=== PATIENT | female | born 1965 | race Caucasian/White ===

== ENCOUNTER 2022-05-08 14:37 | Outpatient (REF) | payer OTHER, SELFPAY ==
[2022-05-08 15:50] LABS: MANUAL DIFF FLAG NO
[2022-05-08 16:04] LABS: Basophils Absolute Auto 0.1 X10*3/uL (0.0-0.2); Basophils Percent Auto 0.6 % (0-2); Eosinophils Absolute Auto 0.2 X10*3/uL (0.0-0.4); Eosinophils Percent Auto 2.3 % (0-4); Hematocrit 40.7 % (37.0-47.0); Hemoglobin 13.8 g/dl (12.0-16.0); Imm Gran Abs Auto 0.03 X10*3/uL (0.00-0.03); Imm Gran Pct Auto 0.3 % (0.0-0.4); Lymphocytes Percent Auto 20.3 % (20-40); Mean Corpuscular HGB Conc 33.9 g/dl (31.0-35.0); Mean Corpuscular Hemoglobin 33.6 pg (27.0-33.0); Mean Platelet Volume 10.3 fL (9.4-12.3); Monocytes Absolute Auto 1.1 X10*3/uL (0.1-1.2); Monocytes Percent Auto 11.5 % (2-11); Neutrophils Absolute Auto 6.4 x10*3/uL (2.0-8.3); Platelet Count 252 X10*3/uL (160-400); Red Blood Count 4.11 X10*6/uL (4.20-5.50); Red Cell Distribution Width 11.8 % (11.0-16.0); White Blood Count 9.8 X10*3/uL (4.8-10.8)
[2022-05-08 16:38] LABS: Alanine Aminotransferase 55 U/L (0-31); Albumin Level 4.3 g/dL (3.5-5.0); Alkaline Phosphatase 79 U/L (39-117); Anion Gap 13 (12-20); Aspartate Amino Transferase 49 U/L (5-31); Bilirubin Total 1.2 mg/dL (0.0-1.0); Blood Urea Nitrogen 27 mg/dL (9-16); Calcium 10.4 mg/dL (8.4-10.2); Carbon Dioxide 28 mmol/L (22-29); Chloride 102 mmol/L (96-108); Estimated Glomerular Filt Rate 42; Glucose Random 118 mg/dL (60-115); Potassium 4.7 mmol/L (3.3-5.1); Sodium 138 mmol/L (135-145); Total Protein 7.2 g/dL (6.5-8.0)
[2022-05-08 17:09] LABS: Ferritin 798 ng/mL (10-250); Thyroid Stimulating Hormone 1.52 uIU/mL (0.32-4.0); Vitamin B12 587 pg/mL (200-900)
== END 2022-05-08 14:38 | disposition home or self-care (01) ==
LOC: HO.LAB 14:37
PROVIDERS: PCP Internal Medicine; Visit Provider Physician Assistant
DX: K21.9 Gastro-esophageal reflux disease without esophagitis (principal); K58.9 Irritable bowel syndrome, unspecified; F10.10 Alcohol abuse, uncomplicated; R79.89 Other specified abnormal findings of blood chemistry; Z87.19 Personal history of other diseases of the digestive system; Z79.899 Other long term (current) drug therapy
CPT/HCPCS: 36415; 80053; 82607; 82728; 82746; 84443; 85025; 87338

== ENCOUNTER 2022-07-18 08:31 | Outpatient (REF) | payer OTHER, SELFPAY ==
--- NOTE | ~2022-07-18 | FL_ITS ---
EXAMINATION: FL BARIUM SWALLOW CLINICAL INFORMATION: Gastroesophageal reflux disease without esophagitis. COMPARISON: 04/21/2017 and 04/18/2017 TECHNIQUE: Barium swallow examination is performed using fluoroscopic evaluation in addition to multiple fluoroscopic spot views. The patient is imaged both upright and prone and using both thick and thin sulfate along with half-inch diameter barium tablet. Fluoroscopy time: 1.8 minutes minutes DAP: 17.097 Gycm2 Images: 16 FINDINGS: There is normal apposition of the focal cords while saying E. There is normal elevation of the soft palate while saying candy. Patient swallowed thin and thick barium and half-inch diameter barium tablet without difficulty. No nasopharyngeal reflux or tracheal aspiration. There is normal esophageal motility without persistent stricture or mucosal abnormality. No hiatal hernia. There was spontaneous gastroesophageal reflux to the level of the thoracic inlet which cleared rapidly. Stomach demonstrates normal distensibility without abnormal mass or ulceration. There was a small amount of retained gastric content. There was no delay in gastric emptying. The duodenal bulb and sweep appear unremarkable FL/FL barium swallow IMPRESSION: Spontaneous gastroesophageal reflux to the level of the thoracic inlet which clears rapidly. Small amount of retained gastric content with patient stating that she did not eat since last night.
== END 2022-07-18 08:32 | disposition home or self-care (01) ==
LOC: HO.XRAY 08:31
PROVIDERS: PCP Internal Medicine; Visit Provider Physician Assistant
DX: K21.9 Gastro-esophageal reflux disease without esophagitis (principal); Z87.19 Personal history of other diseases of the digestive system
CPT/HCPCS: 74220

== ENCOUNTER 2022-09-26 13:18 | Outpatient (REF) | payer OTHER, SELFPAY ==
--- NOTE | ~2022-09-26 | XR_ITS ---
EXAMINATION: XR LUMBOSACRAL SPINE CLINICAL INFORMATION: Radiculopathy and spondylosis. COMPARISON: CT abdomen and pelvis 04/18/2017. TECHNIQUE: Three views of the lumbosacral spine. FINDINGS: Again seen are mild degenerative changes in the lumbar spine most marked at L5-S1 with vacuum phenomena. Vertebral body heights are well maintained. Spondylitic endplate changes are seen with anterior ventral osteophytes arising from the superior endplates from L3 through L5. When comparison is made to the prior study from 04/18/2017, there has been no significant interval change. Again noted is marked aortoiliac vascular calcification. XR/XR lumbar spine 2-3V IMPRESSION: Degenerative changes in the lumbar spine without significant interval change.
== END 2022-09-26 13:19 | disposition home or self-care (01) ==
LOC: HO.XRAY 13:18
PROVIDERS: Visit Provider Physician Assistant
DX: M47.26 Other spondylosis with radiculopathy, lumbar region (principal)
CPT/HCPCS: 72100

== ENCOUNTER 2023-04-30 07:34 | Observation (INO) | payer OTHER, SELFPAY ==
--- NOTE | ~2023-04-30 | CT_ITS ---
EXAMINATION: CT ANGIOGRAM OF THE HEAD CT ANGIOGRAM OF THE NECK CLINICAL INFORMATION: Slurred speech. Altered gait. COMPARISON: CT scan of the head earlier 04/30/2023. CT scan of the head 12/29/2015. TECHNIQUE: Test bolus series followed by intravenous administration 70 mL of Omnipaque 350. Helical imaging was performed in the axial plane from the mediastinum to the skull vertex. The degree of stenosis is based off NASCET criteria. The data was processed at the arrt technologist workstation for generation of MIP images. Three-dimensional volume rendered reformatted images were also generated at an offline 3-D workstation. This CT examination was performed using dose optimization techniques as appropriate, variously including the following: *Automated exposure control *Adjustment of mA and/or kV according to patient size (this includes techniques or standardized protocols for targeted exams where dose is matched to indication/reason for exam; i.e. extremities or head) *Use of iterative reconstruction technique DLP: 1409 mGy-cm. FINDINGS: CT Head: There is no evidence of acute intracranial hemorrhage or territorial infarction. No abnormal mass-effect or midline shift is seen. Taylor to white matter differentiation is well preserved. No extra-axial fluid collections are identified. There is no abnormal enhancement. The ventricles and sulci are slightly commensurately prominent. There are scattered areas of low-attenuation in the periventricular and subcortical white matter, most consistent with chronic microvascular ischemic disease. There are no acute osseous findings. There is hyperostosis frontalis interna. The soft tissues are unremarkable. The mastoid air cells are well-aerated. There is extensive mucoperiosteal thickening with aerosolized secretions in the right maxillary sinus. There is trace mucoperiosteal thickening in the left maxillary and ethmoid sinuses. The frontal sinuses are hypoplastic. There is a 1 cm septal perforation in the anterior nasal septum; this was not demonstrated on the CT scan from 12/29/2015. CTA Neck: There is a classic configuration of the arch of the aorta. The great vessels of the neck are widely patent. The subclavian arteries appear normal bilaterally. There is minimal atheromatous calcification of the distal right common carotid artery. Both common carotid arteries are patent. There are mild atheromatous calcifications at the carotid bifurcations bilaterally without flow-limiting stenosis. The cervical internal carotid arteries are patent bilaterally. There are mild atheromatous calcifications at the origin of the right vertebral artery, but the vessel is patent. The left vertebral artery has a normal origin. Both vertebral arteries are widely patent throughout their cervical course extending intradurally. The vertebral arteries are codominant. Nonvascular: The visualized upper lung guan are unremarkable. The thyroid gland appears normal. There is no cervical lymphadenopathy. There is no significant spondylosis, and facet joints appear normal. CTA Head: There is a there are minimal atheromatous calcifications of the right cavernous internal carotid artery. The internal carotid artery termini appear normal. The middle and anterior cerebral arteries bilaterally demonstrate normal caliber with no evidence of focal stenosis, aneurysm or vascular malformation. There is normal arborization of the middle cerebral artery branches. The anterior communicating artery is normal. In the posterior circulation, the vertebral arteries are codominant and have uniform caliber. The basilar artery appears normal. The right posterior communicating artery is well seen. The posterior cerebral arteries have normal caliber. The venous sinuses opacify normally. CT/CT angio head neck IMPRESSION: CT Head and Neck: 1. There are no acute bleeds or territorial infarcts. There are no masses or areas of abnormal enhancement. 2. There is mild diffuse volume loss and there are chronic microvascular ischemic changes. 3. There is a 1 cm perforation of the anterior nasal septum. CTA Head and Neck: 1. There are mild atheromatous calcifications in the head and neck vasculature, without flow-limiting stenosis. 2. Intracranially there are no focal stenoses, aneurysms or vascular malformations. This critical result was discussed with Vandana Chin by telephone on 04/30/2023 at 9:30 AM and it was ascertained that the content and urgency of the report was understood at the time of direct communication.
--- NOTE | ~2023-04-30 | XR_ITS ---
EXAMINATION: XR CHEST CLINICAL INFORMATION: Chest pain COMPARISON: 11/09/2019 TECHNIQUE: Frontal view of the chest was obtained. FINDINGS: No significant abnormality is noted involving the heart, lungs, mediastinum, bony thorax or soft tissues. XR/XR chest 1V IMPRESSION: Unremarkable examination with no interval change.
--- NOTE | ~2023-04-30 | CT_ITS ---
EXAMINATION: CT HEAD WITHOUT CONTRAST (STROKE PROTOCOL) CLINICAL INFORMATION: Stroke protocol. Slurred speech. COMPARISON: 12/29/2015 TECHNIQUE: Contiguous axial imaging was performed from the skull base to vertex without intravenous administration of contrast. This CT examination was performed using dose optimization techniques as appropriate, variously including the following: *Automated exposure control *Adjustment of mA and/or kV according to patient size (this includes techniques or standardized protocols for targeted exams where dose is matched to indication/reason for exam; i.e. extremities or head) *Use of iterative reconstruction technique DLP: 651 mGy-cm FINDINGS: Intracranial structures are unremarkable in appearance. No evolving infarct, mass lesion, mass effect or midline shift. No hemorrhage or extra-axial fluid collections. Intraorbital structures are unremarkable. Bilateral maxillary sinus disease, right greater than left. Remaining sinuses and mastoids are clear. Nasal sinus mucosal and turbinate thickening. Mild rightward nasal septal deviation. Bony structures are intact. Soft tissues are unremarkable. CT/CT head for stroke IMPRESSION: No acute intracranial pathology. This critical result was discussed with Elsy Mcmillan at 759 hours on 04/30/2023. It was ascertained that the content and urgency of the report was understood at the time of direct communication.
--- NOTE | ~2023-04-30 | MR_ITS ---
MR BRAIN WITHOUT CONTRAST CLINICAL INFORMATION: Slurred speech. COMPARISON: CTA head and neck 04/30/2023. TECHNIQUE: MRI of the brain was obtained using routine sequences without contrast. FINDINGS: There is no hydrocephalus, extra-axial surface collection, or herniation. There is global cerebellar volume loss and there is mild chronic microangiopathy. The major flow voids at the skull base are preserved. There is no acute infarct on diffusion-weighted imaging. There is no intracranial hemorrhage on the gradient recalled echo acquisition. The midline structures are normal. The cerebellar tonsils are normally positioned. Diffusion artifact within the jeremy. The craniocervical junction is normal. Osseous marrow signal intensity is homogenous. The visualized soft tissues are unremarkable. There is moderate mucosal thickening and there are aerosolized secretions within the right maxillary sinus. There is mild mucosal thickening within the left maxillary sinus and involving the ethmoid air cells bilaterally. The mastoid air cells are clear. MR/MR head/brain wo con IMPRESSION: - No acute intracranial findings. No acute infarcts. There is global cerebellar volume loss and there is mild chronic microangiopathy. - Sinus mucosal disease as described.
--- NOTE | 2023-04-30 07:00 | CA_ITS ---
Transthoracic Echocardiogram Patient (Last, First, Middle): Orin Harden A Gender: Female Date of : 1965 Age: 57 Procedure Date: 04/30/2023 Procedure Type: Transthoracic Echocardiogram [place] [facility] [place]: 154.94 cm Weight: 73.03 kg BSA: 1.72 m2 Heart Rate: 90 bpm BP: 169 / 100 mmHg Level Vial Inspector And Tester: SB Referring MD: Demarcus Lamb MD Symptoms: tia Study Quality: Adequate ECG Rhythm: Sinus Conclusions: - Normal left ventricular cavity size. There is normal left ventricular wall thickness. The left ventricular systolic function is hyperdynamic. The visually estimated ejection fraction is >70%. - Diastolic function is normal for age. Dynamic LVOT gradient - at rest 46 mm Hg, post valsalva 103 mm Hg. - Normal right ventricular cavity size and systolic function. - There is mild dilatation of the ascending aorta measuring 3.60 cm. - There is no evidence of interatrial shunt by agitated saline. Findings Procedure Information Contrast agent, definity, is being given per protocol without apparent complications. Left Ventricle Normal left ventricular cavity size. There is normal left ventricular wall thickness. The left ventricular systolic function is hyperdynamic. The visually estimated ejection fraction is >70%. There is no evidence of regional wall motion abnormalities. There is no systolic anterior motion of the mitral valve. Diastolic function is normal for age. Dynamic LVOT gradient - at rest 46 mm Hg, post valsalva 103 mm Hg. Right Ventricle Normal right ventricular cavity size and systolic function. Atria The left atrium is normal in size. There is no evidence of interatrial shunt by agitated saline. Aortic Valve Normal aortic valve structure and function. There is no aortic valve stenosis. There is no aortic valve regurgitation. Mitral Valve The mitral valve appears normal. There is no mitral valve regurgitation. There is no mitral valve stenosis. Pulmonic Valve The pulmonic valve is likely normal. Tricuspid Valve Normal tricuspid valve structure. There is no tricuspid valve regurgitation. Tricuspid regurgitation envelope is inadequate for calculation of right ventricular systolic pressure. Normal right atrial pressure. Great Vessels There is mild dilatation of the ascending aorta measuring 3.60 cm. The visualized portions of the pulmonary artery and branches are normal. Venous The inferior vena cava is normal in size and collapses greater than 50% with inspiration. Pericardium/Pleural There is no evidence of pericardial effusion. Prior Study Comparison No prior study available for comparison. Measurements 2D Linear Measurements IVSd: 1.18 0.6-0.9/0.6-1.0 cm LVIDd: 4.21 3.9-5.3/4.2-5.9 cm LVIDd Index: 2.45 2.4-3.2/2.2-3.1 cm/m2 LVIDs: 2.45 2.0-3.6 cm LVPWd: 0.64 0.7-1.1 cm LA Diam: 2.70 2.7-3.8/3.0-4.0 cm LAIDs Index: 1.57 1.5-2.3 cm/m2 LV Mass: 150.31 67-162/88-224 g LV Mass Index: 87.39 43-95/49-115 g/m2 LVOT Diam: 2.00 3.0+(-)1.3 cm 2D Systolic Function EF 4C: 81.70 >55% EF 2C: 74.50 >55% EF BiP: 78.40 >55% Mitral Valve MV Pk E: 0.60 MV PK A: 0.85 MV Decel Time: 186.00 E/A: 0.70 E'Lateral: 9.36 E'Medial: 6.96 E/E' Med: 8.60 E/E' Lat: 6.40 PHT: 55.00 MVA PHT: 4.00 Decel [place]: 3.22 Aortic Valve AoV Pk Harshad: 1.88 AoV Mn Harshad: 1.28 AoV VTI: 0.27 AoV Pk Grad: 14.00 Aov Mn Grad: 8.00 MURALI Cont.VTI: 2.82 LVOT LVOT Pk Harshad: 1.45 LVOT Mn Harshad: 1.01 LVOT VTI: 0.25 LVOT Pk Grad: 8.00 LVOT Mn Grad: 5.00 LVOT Diam: 2.00 LVOT Area: 3.14 Diastolic Function MV Pk E: 0.60 MV Pk A: 0.85 E/A: 0.70 E'Medial: 6.96 E/E' Med: 8.60 E' Laterial: 9.36 E/E' Lat: 6.40 Right Ventricle TAPSE (mm): 18.90 TVS' Harshad: 11.80 Tricuspid Valve RA Press: 3.00 Great Vessels Aorta Sinus of Valsalva: 2.70 2.0-3.5 cm Ao Asc: 3.60 2.1-3.4 cm Pulmonary Valve PV Pk Harshad: 1.42 Peak PV Grad: 8.00 Updated in Other Vendor System with Status of Final Carlo Olguin MD electronically signed on 05/01/2023 12:12:14 PM with status of Final
--- NOTE | 2023-04-30 07:43 | ECG_ITS ---
Test Reason : stroke alert Blood Pressure : / mmHG Vent. Rate : 090 BPM Atrial Rate : 090 BPM P-R Int : 146 ms QRS Dur : 076 ms QT Int : 380 ms P-R-T Axes : 023 -01 041 degrees QTc Int : 464 ms Normal sinus rhythm Nonspecific T wave changes Abnormal ECG When compared with ECG of 23-APR-2017 10:00, Nonspecific T wave changes Referred By: Vandana Chin Electronically Signed By:Carlo Olguin
[2023-04-30 07:44] LABS: Prothrombin Time Whole Bld POC 12.5 sec (11.1-13.5)
[2023-04-30 07:48] LABS: Glucose, Whole Blood 72 mg/dL (60-115)
[2023-04-30 07:54] VITALS: BP 164/113; BP 198/120; PULSE 98; PULSE 99; RESP 18; TEMP 37.1; O2SAT 100; O2SAT 97; BMI 30.4
[2023-04-30 08:03] LABS: MANUAL DIFF FLAG NO
--- NOTE | 2023-04-30 08:03 | ED_ITS ---
HPI - Neuro Symptoms/Deficit General Chief Complaint: Neuro Symptoms/Deficit Stated Complaint: STROKE ALERT,DYSPHASIA,TOTAL WEAKNESS,LKW 500 AM Time Seen by Provider: 04/30/23 07:43 History of Present Illness HPI Narrative: Patient is a 57-year-old female presents today with having slurred speech this morning when she woke up. Patient's last known well time was yesterday 20:00. She spoke with her CT at that time her speech was normal. Patient has stated that she feels wobbly this morning. EMS was contacted. Patient's sugar was checked to be in the 70s. She has a history of diabetes. Her symptoms resolved upon arrival in the emergency department. His speech is clear. There is no fever no chills. No pain on urination. No change in vision. Patient from home. Related Data Home Medications Medication Instructions Recorded Confirmed amlodipine 5 mg tablet 5 mg PO DAILY 04/30/23 04/30/23 clonidine HCl 0.1 mg tablet 0.1 mg PO BID 04/30/23 04/30/23 famotidine 20 mg tablet 20 mg PO BEDTIME PRN Heartburn 04/30/23 04/30/23 glipizide 5 mg tablet, extended 5 mg PO DAILY 04/30/23 04/30/23 release 24 hr losartan 100 mg tablet 100 mg PO DAILY 04/30/23 04/30/23 metoprolol tartrate 25 mg tablet 25 mg PO BID 04/30/23 04/30/23 pantoprazole 20 mg tablet,delayed 20 mg PO DAILY 04/30/23 04/30/23 release ropinirole 0.5 mg tablet 0.5 mg PO BEDTIME 04/30/23 04/30/23 Previous Rx's Medication Instructions Recorded sucralfate 1 gram tablet 1 g PO QIDACHS 21 days #90 tabs 05/30/22 Allergies Allergy/AdvReac Type Severity Reaction Status Date / Time acetaminophen [From TYLENOL] Allergy Intermediate UPSET Verified 04/30/23 08:13 STOMACH acetaminophen Allergy Unknown Unknown Uncoded 05/08/22 14:44 Review of Systems 2 Review of Systems: No fever no chills no cough no congestion or upper respiratory symptoms Yes all other systems are reviewed and are negative PMFSH Past Medical History Attestation statement: The following information was validated with the patient. Surgical History H/O section Family History Family History Mother Pancreatic cancer Social History Social History Alcohol intake: current Smoked in Last 30 Days: No Use of substances other than those prescribed or required for medical reasons: No Advance Directives: No Current occupational status: employed Current occupation: [employer] Physical Exam 2 Vital Signs: Vital Signs: Last Vital Signs Temp 98.7 F 04/30/23 07:54 Pulse 98 04/30/23 07:54 Resp 18 04/30/23 07:54 BP 164/113 H 04/30/23 07:54 Pulse Ox 97 04/30/23 07:54 O2 Del Method Room Air 04/30/23 07:54 BMI result Body Mass Index 30.4 Appearance: Alert. Oriented X3. No acute distress. Eyes: Pupils equal, round and reactive to light. ENT: Pharynx normal. Neck: Normal inspection. Neck supple. No lymph nodes noted. No crepitus CVS: Normal heart rate and rhythm. Pulses normal. Normal S1 and S2 Respiratory: No respiratory distress. Breath sounds normal. No Wheezing. No rales Abdomen: Soft and nontender. No rigidity. No distention. good BS x4 Skin: Skin warm and dry. Normal skin color. Normal skin turgor. Extremities: No lower extremity edema. Neurovascular intact to all extremities. No Lacerations. No Rash Neuro: Oriented X 3. No motor deficit. No sensory deficit. Moving all extermities. No slurred speech Medications Administered Discontinued Medications Generic Name Dose Route Start Last Admin Trade Name Freq PRN Reason Stop Dose Admin Iohexol 70 ml 04/30/23 08:58 04/30/23 08:59 Iohexol 350 Mg/Ml 100 Ml Infus..Btl IV 04/30/23 08:59 70 ml ONCE ONE Administration Medical Decision Making Medical Decision Making MDM Narrative: A stroke alert was called prior to patient's arrival based on symptoms. Patient's sugar 75 there has no evidence for hypoglycemia. Patient's EKG by my interpretation showed a sinus rhythm heart rate is 90 MT QRS QTC within normal limits there is nonspecific diffuse T-wave flattening noted. On arrival patient's NIH stroke scale is 0. Well-appearing neurologically intact. CT scan of the head was grossly negative. CTA of the head and neck was grossly negative for any large vessel occlusions. Patient's sugar was normal electrolytes unremarkable will admit patient for observation TIA. Case discussed with the hospitalist team. Differential Diagnosis Differential Diagnoses: The differential diagnosis associated with the presentation includes CVA, TIA, hypoglycemia, intracranial bleed, intracranial mass Admission/Observation Consideration of admission/observation: Escalation of care including admission/observation considered Consult Healthcare Provider Management of the patient was discussed with: Hospitalist (For admission workup TIA) Lab Data MDM Lab Attestation statement: I reviewed the patient's lab results. 04/30/23 07:59 04/30/23 07:59 Labs: Lab Results 04/30/23 04/30/23 04/30/23 Range/Units 07:37 07:41 07:59 WBC 8.6 (4.8-10.8) X10*3/uL RBC 4.70 (4.20-5.50) X10*6/uL Hgb 15.3 (12.0-16.0) g/dl Hct 43.5 (37.0-47.0) % MCV 92.6 (80.0-98.0) fL MCH 32.6 (27.0-33.0) pg MCHC 35.2 H (31.0-35.0) g/dl RDW 12.5 (11.0-16.0) % Plt Count 239 (160-400) X10*3/uL MPV 9.9 (9.4-12.3) fL Immature Gran % (Auto) 0.5 H (0.0-0.4) % Neut % (Auto) 79.5 H (45-73) % Lymph % (Auto) 11.6 L (20-40) % [place] % (Auto) 7.3 (2-11) % Eos % (Auto) 0.8 (0-4) % Baso % (Auto) 0.3 (0-2) % Lymph # (Auto) 1.0 L (1.2-4.9) X10*3/uL [place] # (Auto) 0.6 (0.1-1.2) X10*3/uL Eos # (Auto) 0.1 (0.0-0.4) X10*3/uL Baso # (Auto) 0.0 (0.0-0.2) X10*3/uL Abs Immat Gran (auto) 0.04 H (0.00-0.03) X10*3/uL Absolute Neuts (auto) 6.9 (2.0-8.3) x10*3/uL Absolute Nucleated RBC 0.000 (0.0-0.012) X10*3/uL Nucleated RBC % (auto) 0.0 (0.0-0.2) /100WBC Whole Blood PT 12.5 (11.1-13.5) sec Whole Blood INR 1.0 (0.9-1.1) Sodium 142 (135-145) mmol/L Potassium 4.5 (3.3-5.1) mmol/L Chloride 108 (96-108) mmol/L Carbon Dioxide 18 L (22-29) mmol/L Anion Gap 21 H (12-20) BUN 18 H (9-16) mg/dL Creatinine 0.82 (0.5-1.4) mg/dL Estim Creat Clear Calc 67.5 Estimated GFR > 60 POC Glucose 72 (60-115) mg/dL Random Glucose 85 (60-115) mg/dL Calcium 10.3 H (8.4-10.2) mg/dL Independent Interpretation I performed an independent interpretation of an: EKG (My interpretation patient's EKG showed a sinus rhythm heart rate is 90 MT QRS QTC within normal limits is nonspecific T-wave flattening noted diffusely.) and CT Scan (CT scan of the head was grossly negative for any acute evidence of bleeding. CTA showed no large vessel occlusions.) Radiology Impression Discussion of test interpretation with radiology: I discussed test interpretation with the radiologist and I have reviewed the radiologist's reading. Independent Historian Clinical information obtained from an independent historian. History obtained from or confirmed by: EMS External Record Review External record reviewed: Office record Previous GI labs reviewed Chronic Conditions Patient?s care impacted by: Diabetes and Hypertension NIH Stroke Scale Internal: Initial- Upon Arrival Level of Consciousness: Alert Level of Consciousness Questions: Answers both questions correctly Level of Consciousness Commands: Performs both tasks correctly Best Gaze: Normal Visual: No visual loss Facial Palsy: Normal Motor Arm (Right): No drift Motor Arm (Left): No drift Motor Leg (Right): No drift Motor Leg (Left): No drift Limb Ataxia: Absent Sensory: Normal Best Language: No aphasia Dysarthia: Normal Extinction and Inattention: No abnormality Score: 0 Discharge Plan Discharge Clinical Impression: Transient cerebral ischemia Patient Disposition: Admitted As Inpatient Prescriptions: No Action sucralfate 1 gram tablet 1 g PO QIDACHS 21 Days Qty: 90 0RF amlodipine 5 mg tablet 5 mg PO DAILY clonidine HCl 0.1 mg tablet 0.1 mg PO BID famotidine 20 mg tablet 20 mg PO BEDTIME PRN (Reason: Heartburn) losartan 100 mg tablet 100 mg PO DAILY glipizide 5 mg tablet extended release 24hr 5 mg PO DAILY metoprolol tartrate 25 mg tablet 25 mg PO BID pantoprazole 20 mg tablet,delayed release (DR/EC) 20 mg PO DAILY ropinirole 0.5 mg tablet 0.5 mg PO BEDTIME
[2023-04-30 08:04] LABS: Basophils Percent Auto 0.3 % (0-2); Eosinophils Absolute Auto 0.1 X10*3/uL (0.0-0.4); Eosinophils Percent Auto 0.8 % (0-4); Hematocrit 43.5 % (37.0-47.0); Hemoglobin 15.3 g/dl (12.0-16.0); Imm Gran Abs Auto 0.04 X10*3/uL (0.00-0.03); Imm Gran Pct Auto 0.5 % (0.0-0.4); Lymphocytes Percent Auto 11.6 % (20-40); Mean Corpuscular HGB Conc 35.2 g/dl (31.0-35.0); Mean Corpuscular Hemoglobin 32.6 pg (27.0-33.0); Mean Corpuscular Volume 92.6 fL (80.0-98.0); Mean Platelet Volume 9.9 fL (9.4-12.3); Monocytes Absolute Auto 0.6 X10*3/uL (0.1-1.2); Monocytes Percent Auto 7.3 % (2-11); Neutrophils Absolute Auto 6.9 x10*3/uL (2.0-8.3); Neutrophils Percent Auto 79.5 % (45-73); Platelet Count 239 X10*3/uL (160-400); Red Cell Distribution Width 12.5 % (11.0-16.0); White Blood Count 8.6 X10*3/uL (4.8-10.8)
[2023-04-30 08:20] LABS: Anion Gap 21 (12-20); Blood Urea Nitrogen 18 mg/dL (9-16); Calcium 10.3 mg/dL (8.4-10.2); Carbon Dioxide 18 mmol/L (22-29); Chloride 108 mmol/L (96-108); Creatinine Clr Calc Pharmacy 67.5; Estimated Glomerular Filt Rate > 60; Glucose Random 85 mg/dL (60-115); Potassium 4.5 mmol/L (3.3-5.1); Sodium 142 mmol/L (135-145)
--- NOTE | 2023-04-30 08:28 | PC.NURSE ---
Met with patient after being notified of Stroke Alert in ED. Pt awake, alert and oriented x 3. Reports that approximately 0450 this am she woke and found that she was having difficulty speaking. My tongue felt in the way . States that she is normally up early to feed her cat. She states when I tried to talk to my cat I couldn't speak . She attempted to get out of bed and reports feeling weak all over. I fell out of bed and couldn't walk, I crawled to the kitchen . Pt states that she made it back to the bed and attempted to call her boss. She reports that she couldn't see the phone and felt that both eyes were affected. She was able to finally make contact with her boss who called the [place] [employer]. D sent an ambulance to patient's house. In ED, pt awake, alert and oriented x 3. Hand grasp slightly weaker on left. Moving all extremities. Reports feeling dizzy. When asked if she feels like the room is spinning or if she is on a boat she states I just feel lightheaded . Denies headache. States my vision seems cloudy, I can see but it's a little blurry . States that she only wears glasses to drive. Pt speaking in full clear sentences. Tongue midline. No palmar drift. Pt reports feeling well yesterday and went to bed at 2000 and states that she had no symptoms at that time. Swallow eval completed in ED. Pt tolerated without incident. Stroke Education provided. Pt does have a hx of kidney disease. Waiting on lab results to determine if she is eligible to have CTA. Per patient, other med hx includes hypertension, DM, restless leg syndrome, and acid reflux. All questions answered and patient is aware and agreeable to ED care plan.
[2023-04-30] MEDS: iohexoL 350 MG/ML 100 ML INFUS..BTL 70 ML IV (08:59)
[2023-04-30 10:08] LABS: Alanine Aminotransferase 37 U/L (0-31); Albumin Level 4.5 g/dL (3.5-5.0); Alkaline Phosphatase 69 U/L (39-117); Aspartate Amino Transferase 39 U/L (5-31); Bilirubin Direct 0.2 mg/dL (0.0-0.5); Bilirubin Total 0.6 mg/dL (0.0-1.0); Cholesterol 215 mg/dL (<200); HDL Cholesterol 99 mg/dL (>40); LDL Cholesterol Calculated 103 mg/dL (<100); Triglycerides 66 mg/dL (<150)
--- NOTE | 2023-04-30 10:08 | PM.IMHP ---
History of Present Illness Date of Service: 04/30/23 Chief Complaint: aphasia 57F PMH htn, dm, etoh dependence, gerd presented with aphasia. patient states she awaoke around 5am day of presentation, tongue felt heavy, unable to speak to her cat. tried to get out of bed but felt weak and fell to floor, denies asymetry. went back to bed. tried calling employer and had difficulty managing phone. eventually got through and had difficulty speaking to employer so employer called EMS. in ED CTH, CTA unremarkable. symptoms have since respolved, reports that it lasted about 1 hour. Review of Systems Review of Systems: Yes all other systems are reviewed and are negative [facility] Medical History (Updated 04/30/23 @ 10:13 by Demarcus Lamb MD) Acid reflux HTN (hypertension) Family History Mother Pancreatic cancer Surgical History H/O section Social History Alcohol intake: current Smoked in Last 30 Days: No Use of substances other than those prescribed or required for medical reasons: No Advance Directives: No Current occupational status: employed Current occupation: [employer] Allergies Allergy/AdvReac Type Severity Reaction Status Date / Time acetaminophen [From TYLENOL] Allergy Intermediate UPSET Verified 04/30/23 08:13 STOMACH acetaminophen Allergy Unknown Unknown Uncoded 05/08/22 14:44 Active Medications: Current Medications Aspirin (Aspirin Enteric Coated 81 Mg Tablet.) 81 mg PO DAILY [facility] Atorvastatin Calcium (Atorvastatin Calcium 80 Mg Tablet) 80 mg PO BEDTIME [facility] Dextrose (Dextrose 50 % 25 Gm/50 Ml Syringe) 25 gm IVPUSH Q15M PRN; Protocol PRN Reason: per Hypoglycemia Standing Ord. Famotidine (Famotidine 20 Mg Tablet) 20 mg PO BEDTIME PRN PRN Reason: Heartburn Glucose (Glucose Gel 15 Gm Gel..Gram.) 15 gm PO Q15M PRN; Protocol PRN Reason: per Hypoglycemia Standing Ord. Insulin Human Lispro (Insulin Lispro 100 Unit/Ml 3 Ml Vial) 0 unit SUBCUT QIDACHS [facility]; Protocol Omeprazole (Omeprazole 20 Mg Capsule.) 20 mg PO DAILY@0630 [facility] Ropinirole HCl (Ropinirole Hcl 0.5 Mg Tablet) 0.5 mg PO BEDTIME [facility] Home Medications Medication Instructions Recorded Confirmed Last Taken Type amlodipine 5 mg tablet 5 mg PO DAILY 04/30/23 04/30/23 Unknown History clonidine HCl 0.1 mg tablet 0.1 mg PO BID 04/30/23 04/30/23 Unknown History famotidine 20 mg tablet 20 mg PO BEDTIME PRN Heartburn 04/30/23 04/30/23 Unknown History glipizide 5 mg tablet, extended 5 mg PO DAILY 04/30/23 04/30/23 Unknown History release 24 hr losartan 100 mg tablet 100 mg PO DAILY 04/30/23 04/30/23 Unknown History metoprolol tartrate 25 mg tablet 25 mg PO BID 04/30/23 04/30/23 Unknown History pantoprazole 20 mg tablet,delayed 20 mg PO DAILY 04/30/23 04/30/23 Unknown History release ropinirole 0.5 mg tablet 0.5 mg PO BEDTIME 04/30/23 04/30/23 Unknown History Physical Exam Vital Signs and Narrative: Vital Signs: Last Vital Signs Temp 98.7 F 04/30/23 07:54 Pulse 98 04/30/23 07:54 Resp 18 04/30/23 07:54 BP 164/113 H 04/30/23 07:54 Pulse Ox 97 04/30/23 07:54 O2 Del Method Room Air 04/30/23 07:54 BMI result Body Mass Index 30.4 General: AO X 3, no acute distress Resp: CTA bilateral, no accessory muscles used CVS: S1,S2,RRR GI: soft, non tender, non distended Neuro: motor grossly intact, alert Psych: appropriate affect, appropriate insight Results Labs 04/30/23 07:59 04/30/23 07:59 Labs: Laboratory Results - last 24 hr 04/30/23 04/30/23 04/30/23 07:37 07:41 07:59 MCV 92.6 MCH 32.6 MCHC 35.2 H RDW 12.5 Plt Count 239 MPV 9.9 Immature Gran % (Auto) 0.5 H Neut % (Auto) 79.5 H Lymph % (Auto) 11.6 L [place] % (Auto) 7.3 Eos % (Auto) 0.8 Baso % (Auto) 0.3 Lymph # (Auto) 1.0 L [place] # (Auto) 0.6 Eos # (Auto) 0.1 Baso # (Auto) 0.0 Abs Immat Gran (auto) 0.04 H Absolute Neuts (auto) 6.9 Absolute Nucleated RBC 0.000 Nucleated RBC % (auto) 0.0 Whole Blood PT 12.5 Whole Blood INR 1.0 Anion Gap 21 H Estim Creat Clear Calc 67.5 Estimated GFR > 60 POC Glucose 72 Random Glucose 85 Calcium 10.3 H Total Bilirubin 0.6 Direct Bilirubin 0.2 AST 39 H ALT 37 H Alkaline Phosphatase 69 Total Protein 8.0 Albumin 4.5 Triglycerides 66 Cholesterol 215 H LDL Cholesterol, Calc 103 H HDL Cholesterol 99 Imaging Radiologist's Impressions: Impressions Head CT 04/30/23 07:50 IMPRESSION: No acute intracranial pathology. This critical result was discussed with Elsy Mcmillan at 759 hours on 04/30/2023. It was ascertained that the content and urgency of the report was understood at the time of direct communication. Chest X-Ray 04/30/23 09:05 IMPRESSION: Unremarkable examination with no interval change. Head/Neck CTA 04/30/23 09:08 IMPRESSION: CT Head and Neck: 1. There are no acute bleeds or territorial infarcts. There are no masses or areas of abnormal enhancement. 2. There is mild diffuse volume loss and there are chronic microvascular ischemic changes. 3. There is a 1 cm perforation of the anterior nasal septum. CTA Head and Neck: 1. There are mild atheromatous calcifications in the head and neck vasculature, without flow-limiting stenosis. 2. Intracranially there are no focal stenoses, aneurysms or vascular malformations. This critical result was discussed with Vandana Chin by telephone on 04/30/2023 at 9:30 AM and it was ascertained that the content and urgency of the report was understood at the time of direct communication. Assessment and Plan (1) HTN (hypertension): Status: Acute Plan 57F PMH htn, dm, etoh dependence, gerd presented with aphasia acute transient aphasia concern for TIA check mri, monitor on tele neuro eval echo pt/ot no evidence of dysphagia asa, statin dm insulin sliding scale htn holding meds for permissive htn gerd ppi history of etoh dependence monitor ciwa dvt prophylaxis - lovenox full code Quality Stroke Does the patient have a stroke diagnosis?: Yes Reason for No Anti-thrombotic by Day Two: N/A - Med Ordered VTE Prior VTE?: No VTE Risk Level:: Medical - moderate - high VTE Device Contraindication: Treatment Not Indicated VTE Drug Contraindication: N/A - Med Ordered
[2023-04-30] MEDS: Aspirin Enteric Coated 81 MG TABLET.DR PO (10:22)
[2023-04-30 10:24] VITALS: BP 169/100; PULSE 92; RESP 15; O2SAT 97
[2023-04-30 11:07] VITALS: BP 197/119; PULSE 92
--- NOTE | 2023-04-30 11:23 | PHA.MEDREC ---
Pharmacy Consult ? Medication Reconciliation Pharmacy has completed the medication reconciliation.Patient confirmed medications. Reports that once she is done with pantoprazole 20mg, She will not take again.
--- NOTE | 2023-04-30 11:31 | PM.NEUROCN ---
History of Present Illness Data of Consult Service Date: 04/30/23 Primary Care Provider: Unknown Physician HPI Reason for consult: Transient speech disturbance This is a 57 yr old woman, with h/o HBP, DM, etoh dependence, GERD who presented with aphasia. She states that she awoke around 5am today unable to speak to her cat and tongue felt funny. She tried to get out of bed but felt weak and fell to floor. She went back to bed, and tried calling her employer and had difficulty with the phone. Because of difficulty speaking to employer , he called EMS. All symptoms resolved in less than [address], and head and neck CTA unremarkable. No previous stroke, TIA, migraine Review of Systems Review of Systems: No fever no chills no cough no congestion or upper respiratory symptoms Yes all other systems are reviewed and are negative PMF Past Medical History Medical History Acid reflux HTN (hypertension) Family History Family History Mother Pancreatic cancer Surgical History Surgical History H/O section Social History Social History Alcohol intake: current Smoked in Last 30 Days: No Use of substances other than those prescribed or required for medical reasons: No Advance Directives: No Current occupational status: employed Current occupation: [employer] Allergies Allergy/AdvReac Type Severity Reaction Status Date / Time acetaminophen [From TYLENOL] Allergy Intermediate UPSET Verified 04/30/23 08:13 STOMACH acetaminophen Allergy Unknown Unknown Uncoded 05/08/22 14:44 Active Medications: Current Medications Aspirin (Aspirin Enteric Coated 81 Mg Tablet.) 81 mg PO DAILY MONICO Last Admin: 04/30/23 10:22 Dose: 81 mg Atorvastatin Calcium (Atorvastatin Calcium 80 Mg Tablet) 80 mg PO BEDTIME [facility]ICO Dextrose (Dextrose 50 % 25 Gm/50 Ml Syringe) 25 gm IVPUSH Q15M PRN; Protocol PRN Reason: per Hypoglycemia Standing Ord. Enoxaparin Sodium (Enoxaparin Sodium 40 Mg/0.4 Ml Syringe) 40 mg SUBCUT Q24H [facility] Famotidine (Famotidine 20 Mg Tablet) 20 mg PO BEDTIME PRN PRN Reason: Heartburn Glucose (Glucose Gel 15 Gm Gel..Gram.) 15 gm PO Q15M PRN; Protocol PRN Reason: per Hypoglycemia Standing Ord. Insulin Human Lispro (Insulin Lispro 100 Unit/Ml 3 Ml Vial) 0 unit SUBCUT QIDACHS [facility]; Protocol Omeprazole (Omeprazole 20 Mg Capsule.Dr) 20 mg PO DAILY@0630 [facility] Ropinirole HCl (Ropinirole Hcl 0.5 Mg Tablet) 0.5 mg PO BEDTIME [facility] Sodium Chloride (0.9 % Sodium Chloride Flush 3 Ml Syringe) 3 ml IVFLUSH QSHIFT [facility] Home Medications Medication Instructions Recorded Confirmed Last Taken Type amlodipine 5 mg tablet 5 mg PO DAILY 04/30/23 04/30/23 04/29/23 History clonidine HCl 0.1 mg tablet 0.1 mg PO BID 04/30/23 04/30/23 04/29/23 History famotidine 20 mg tablet 20 mg PO BEDTIME PRN Heartburn 04/30/23 04/30/23 04/29/23 History glipizide 5 mg tablet, extended 5 mg PO DAILY 04/30/23 04/30/23 04/29/23 History release 24 hr ibuprofen 200 mg tablet 200 mg PO DAILY PRN Pain 04/30/23 04/30/23 04/29/23 History losartan 100 mg tablet 100 mg PO DAILY 04/30/23 04/30/23 04/29/23 History metoprolol tartrate 25 mg tablet 25 mg PO BID 04/30/23 04/30/23 04/29/23 History pantoprazole 20 mg tablet,delayed 20 mg PO DAILY 04/30/23 04/30/23 04/29/23 History release ropinirole 0.5 mg tablet 0.5 mg PO BEDTIME 04/30/23 04/30/23 04/29/23 History Physical Exam Vital Signs: Vital Signs: Last Vital Signs Temp 98.7 F 04/30/23 07:54 Pulse 92 04/30/23 11:07 Resp 15 04/30/23 10:24 BP 197/119 H 04/30/23 11:07 Pulse Ox 97 04/30/23 10:24 O2 Del Method Room Air 04/30/23 10:24 BMI result Body Mass Index 30.4 Neuro: Other: Normal , non focal exam. Normal speech. Results Labs 04/30/23 07:59 04/30/23 07:59 Labs: Short CBC 04/30/23 Range/Units 07:59 WBC 8.6 (4.8-10.8) X10*3/uL Hgb 15.3 (12.0-16.0) g/dl Hct 43.5 (37.0-47.0) % Plt Count 239 (160-400) X10*3/uL BMP 04/30/23 07:59 Sodium 142 Potassium 4.5 Chloride 108 Carbon Dioxide 18 L BUN 18 H Creatinine 0.82 Calcium 10.3 H Liver Function 04/30/23 Range/Units 07:59 Total Bilirubin 0.6 (0.0-1.0) mg/dL Direct Bilirubin 0.2 (0.0-0.5) mg/dL AST 39 H (5-31) U/L ALT 37 H (0-31) U/L Alkaline Phosphatase 69 (39-117) U/L Albumin 4.5 (3.5-5.0) g/dL Assessment and Plan (1) Transient cerebral ischemia: Status: Acute Possible left hemisphere TIA with transient speech disturbance. CT and CTA negative. MRI pending. Recom. ASA 81mg. Lipid profile (2) HTN (hypertension): Status: Acute Plan 57F PMH htn, dm, etoh dependence, gerd presented with aphasia acute transient aphasia concern for TIA check mri, monitor on tele neuro eval echo pt/ot no evidence of dysphagia asa, statin dm insulin sliding scale htn holding meds for permissive htn gerd ppi history of etoh dependence monitor ciwa dvt prophylaxis - lovenox full code Procedures Date of Service Date of Service: 04/30/23
--- NOTE | 2023-04-30 11:33 | PC.NURSE ---
MRI screening completed with patient and faxed to MRI.
--- NOTE | 2023-04-30 12:21 | PC.NURSE ---
Pt to MRI.
--- NOTE | 2023-04-30 12:22 | PC.NURSE ---
pt to MRI at this time. will administer medication when pt returns.
[2023-04-30 13:16] VITALS: BP 163/105; PULSE 93; RESP 16; TEMP 37.1; O2SAT 97
[2023-04-30 13:16] LABS: Glucose, Whole Blood 100 mg/dL (60-115)
[2023-04-30] MEDS: Losartan Potassium 50 MG TABLET 100 MG PO (13:18)
--- NOTE | 2023-04-30 13:18 | PC.NURSE ---
this RN resumed care of MRI at this time. pt remains hypertensive at this time but otherwise vss and up to date at this time. POC obtained = 100mg/dL. no insulin coverage needed per sliding scale. pt has no complaints aside from feeling dizzy. denies pain. no sob/wob noted. respirations even and unlabored. medication administered per provider order. pt sitting upright eating lunch at this time. pt waiting for bed assignment upstairs at this time. call diego placed within reach.
--- NOTE | 2023-04-30 14:03 | PC.NURSE ---
admission worksheet complete. transport notified at this time.
[2023-04-30 14:42] VITALS: BP 170/80; PULSE 101; RESP 20; TEMP 36.7; O2SAT 98
[2023-04-30 15:42] VITALS: BMI 30.9
[2023-04-30 16:06] LABS: Glucose, Whole Blood 202 mg/dL (60-115)
[2023-04-30 16:23] LABS: Estimated Average Glucose 88 mg/dL; Hemoglobin A1c % 4.7 % (<6.0)
[2023-04-30 16:42] LABS: Glucose, Whole Blood 182 mg/dL (60-115)
[2023-04-30 19:26] VITALS: BP 149/89; PULSE 93; RESP 20; TEMP 36.7; O2SAT 97
[2023-04-30 20:25] LABS: Glucose, Whole Blood 141 mg/dL (60-115)
[2023-04-30] MEDS: Atorvastatin Calcium 80 MG TABLET PO (21:07)
[2023-04-30] MEDS: rOPINIRole HCL 0.5 MG TABLET PO (21:07)
[2023-04-30] MEDS: 0.9 % Sodium Chloride Flush 3 ML SYRINGE IVFLUSH (21:08)
[2023-05-01 03:26] VITALS: BP 135/87; PULSE 85; RESP 20; TEMP 36; O2SAT 95
[2023-05-01] MEDS: Acetaminophen 325 MG TABLET 650 MG PO (05:13)
[2023-05-01] MEDS: Omeprazole 20 MG CAPSULE.DR PO (05:13)
[2023-05-01 06:22] LABS: Hematocrit 41.9 % (37.0-47.0); Hemoglobin 14.4 g/dl (12.0-16.0); Mean Corpuscular HGB Conc 34.4 g/dl (31.0-35.0); Mean Corpuscular Hemoglobin 32.6 pg (27.0-33.0); Mean Corpuscular Volume 94.8 fL (80.0-98.0); Mean Platelet Volume 10.3 fL (9.4-12.3); Platelet Count 228 X10*3/uL (160-400); Red Blood Count 4.42 X10*6/uL (4.20-5.50); Red Cell Distribution Width 12.5 % (11.0-16.0); White Blood Count 8.6 X10*3/uL (4.8-10.8)
[2023-05-01 06:38] LABS: Anion Gap 15 (12-20); Blood Urea Nitrogen 19 mg/dL (9-16); Calcium 10.2 mg/dL (8.4-10.2); Carbon Dioxide 27 mmol/L (22-29); Chloride 100 mmol/L (96-108); Estimated Glomerular Filt Rate > 60; Glucose Fasting 125 mg/dL (60-99); Potassium 4.2 mmol/L (3.3-5.1); Sodium 138 mmol/L (135-145)
[2023-05-01 07:02] VITALS: BP 148/85; PULSE 69; RESP 18; TEMP 36.2; O2SAT 97
[2023-05-01 07:49] LABS: Glucose, Whole Blood 123 mg/dL (60-115)
[2023-05-01] MEDS: Losartan Potassium 50 MG TABLET 100 MG PO (08:12)
[2023-05-01] MEDS: amLODIPine Besylate 5 MG TABLET PO (08:12)
[2023-05-01] MEDS: glipiZIDE XL 5 MG TAB.ER.24 PO (08:13)
[2023-05-01] MEDS: Metoprolol Tartrate 25 MG TABLET PO (08:13)
[2023-05-01] MEDS: Aspirin Enteric Coated 81 MG TABLET.DR PO (08:13)
[2023-05-01] MEDS: Enoxaparin Sodium 40 MG/0.4 ML SYRINGE SUBCUT (08:13)
[2023-05-01] MEDS: cloNIDine HCL 0.1 MG TABLET PO (08:13)
[2023-05-01] MEDS: 0.9 % Sodium Chloride Flush 3 ML SYRINGE IVFLUSH (08:14)
[2023-05-01 08:16] VITALS: BP 126/85; PULSE 73
--- NOTE | 2023-05-01 08:31 | MHC.CM.PN ---
CM met with Patient at bedside and addressed ABERNATHY with her, providing Patient with a copy and the original has been placed on the chart. 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 PT is recommending home PT(new referral to [facility]); CM has initiated and will follow for dc planning. Patient's Sister/Pia is the HCP and her PCP is from [place] in [place].
--- NOTE | 2023-05-01 09:46 | PM.DS ---
DS: Providers Provider Date of Service: 05/01/23 Date of admission: 04/30/23 10:06 Primary care physician: Unknown Physician Consults: 04/30/23 10:07 Consult to Neurology Routine Consulting Provider: Leslie Yousif Reason for consultation: aphasia DS: Diagnosis Discharge Diagnosis (1) Transient cerebral ischemia: Status: Acute (2) HTN (hypertension): Status: Acute DS: Summary Hospital Course Hospital Course: from initial hpi: 57F PMH htn, dm, etoh dependence, gerd presented with aphasia. patient states she awaoke around 5am day of presentation, tongue felt heavy, unable to speak to her cat. tried to get out of bed but felt weak and fell to floor, denies asymetry. went back to bed. tried calling employer and had difficulty managing phone. eventually got through and had difficulty speaking to employer so employer called EMS. in ED CTH, CTA unremarkable. symptoms have since respolved, reports that it lasted about 1 hour. hospital course: Patient was admitted for acute transient aphasia. She was started on aspirin and statin. MRI did not show acute stroke. Symptoms totally resolved. This was likely TIA, will continue on aspirin statin. For diabetes was continued on glipizide. For hypertension was continued on amlodipine, losartan, clonidine, Lopressor. For GERD was continued on PPI. For alcohol use disorder, patient did not have any symptoms of withdrawal. Time Attestation Discharge coordination time: Greater than 30 minutes Quality: Safe Use of Opioids Does Pt have an Active Cancer Diagnosis on the Problem List?: No Quality: Stroke Does the patient have a stroke diagnosis?: Yes Reason for No Anti-thrombotic at DC: N/A - Med Ordered Reason for No Anticoagulant at DC: Drug treatment not indicated Reason Not Initiating IV-Tpa: Drug treatment not indicated Reason for No Anti-thrombotic by Day Two: N/A - Med Ordered Reason for No Statin at DC: N/A - Med Ordered Physical Exam Vital Signs: Vital Signs: Last Vital Signs Temp 97.2 F 05/01/23 07:02 Pulse 73 05/01/23 08:16 Resp 18 05/01/23 07:02 BP 126/85 05/01/23 08:16 Pulse Ox 97 05/01/23 07:02 O2 Del Method Room Air 05/01/23 07:02 BMI result Body Mass Index 30.9 General: AO X 3, no acute distress Resp: CTA bilateral, no accessory muscles used CVS: S1,S2,RRR GI: soft, non tender, non distended Neuro: motor grossly intact, alert Psych: appropriate affect, appropriate insight DS: Data Data Completed and Pending Labs on day of discharge: Laboratory Results - last 24 hr 04/30/23 04/30/23 04/30/23 07:59 13:13 16:01 WBC RBC Hgb Hct MCV MCH MCHC RDW Plt Count MPV Absolute Nucleated RBC Nucleated RBC % (auto) Sodium Potassium Chloride Carbon Dioxide Anion Gap BUN Creatinine Estim Creat Clear Calc Estimated GFR POC Glucose 100 202 H Fasting Glucose Estimat Average Glucose 88 Hemoglobin A1c % 4.7 Calcium Total Bilirubin 0.6 Direct Bilirubin 0.2 AST 39 H ALT 37 H Alkaline Phosphatase 69 Total Protein 8.0 Albumin 4.5 Triglycerides 66 Cholesterol 215 H LDL Cholesterol, Calc 103 H HDL Cholesterol 99 04/30/23 04/30/23 05/01/23 16:37 20:18 05:49 WBC 8.6 RBC 4.42 Hgb 14.4 Hct 41.9 MCV 94.8 MCH 32.6 MCHC 34.4 RDW 12.5 Plt Count 228 MPV 10.3 Absolute Nucleated RBC 0.000 Nucleated RBC % (auto) 0.0 Sodium 138 Potassium 4.2 Chloride 100 Carbon Dioxide 27 Anion Gap 15 BUN 19 H Creatinine 0.93 Estim Creat Clear Calc 60.0 Estimated GFR > 60 POC Glucose 182 H 141 H Fasting Glucose 125 H Estimat Average Glucose Hemoglobin A1c % Calcium 10.2 Total Bilirubin Direct Bilirubin AST ALT Alkaline Phosphatase Total Protein Albumin Triglycerides Cholesterol LDL Cholesterol, Calc HDL Cholesterol 05/01/23 07:38 WBC RBC Hgb Hct MCV MCH MCHC RDW Plt Count MPV Absolute Nucleated RBC Nucleated RBC % (auto) Sodium Potassium Chloride Carbon Dioxide Anion Gap BUN Creatinine Estim Creat Clear Calc Estimated GFR POC Glucose 123 H Fasting Glucose Estimat Average Glucose Hemoglobin A1c % Calcium Total Bilirubin Direct Bilirubin AST ALT Alkaline Phosphatase Total Protein Albumin Triglycerides Cholesterol LDL Cholesterol, Calc HDL Cholesterol Discharge Plan Discharge Anticipated Discharge Date/Time: 05/01/23 09:44 Patient Disposition: Home, Self-Care Discharge Diagnosis: tia Referrals: Physician,Unknown J [Primary Care Provider] - 1 Week Discharge Medications: New atorvastatin 80 mg Tablet 80 mg PO BEDTIME Qty: 90 0RF aspirin 81 mg Tablet,Delayed Release (Dr/Ec) 81 mg PO DAILY Qty: 90 0RF Continued amlodipine 5 mg tablet 5 mg PO DAILY clonidine HCl 0.1 mg tablet 0.1 mg PO BID famotidine 20 mg tablet 20 mg PO BEDTIME PRN (Reason: Heartburn) losartan 100 mg tablet 100 mg PO DAILY glipizide 5 mg tablet extended release 24hr 5 mg PO DAILY metoprolol tartrate 25 mg tablet 25 mg PO BID pantoprazole 20 mg tablet,delayed release (DR/EC) 20 mg PO DAILY ropinirole 0.5 mg tablet 0.5 mg PO BEDTIME ibuprofen 200 mg Tablet 200 mg PO DAILY PRN (Reason: Pain) Discharge Orders: Discharge Order (Routine); Ordered 05/01/23 Ordered By: Demarcus Lamb Diet: Advance to usual diet Activity on Discharge: As tolerated Stand Alone Forms: Patient Portal Discharge page Care Plan Goals: prevent further strokes Health Concerns: risk for stroke Plan of Treatment: asa, statin Assessment: see above Patient Instructions: Transient Ischemic Attack (DC)
[2023-05-01 10:57] VITALS: BP 113/68; PULSE 68; RESP 18; TEMP 36.1; O2SAT 95
[2023-05-01 11:36] LABS: Glucose, Whole Blood 167 mg/dL (60-115)
--- NOTE | 2023-05-01 12:24 | MHC.CM.PN ---
Patient has been medically cleared for dc to home today, self care.
[2023-05-01] MEDS: 0.9 % Sodium Chloride 1,000 ML 999 ML IV (12:57)
[2023-05-01 15:11] VITALS: BP 123/77; PULSE 80; RESP 18; TEMP 36.3; O2SAT 98
== END 2023-05-01 16:00 | disposition home or self-care (01) ==
LOC: HO.ED 09:57 → HO.EDOVER 10:10 → HO.IMC 13:49
PROVIDERS: Admitting Provider Internal Medicine; Emergency Provider Emergency Medicine Emergency Medical Services; Visit Provider Internal Medicine
DX: G45.9 Transient cerebral ischemic attack, unspecified (principal); R47.01 Aphasia; R07.9 Chest pain, unspecified; R26.89 Other abnormalities of gait and mobility; I10 Essential (primary) hypertension; K21.9 Gastro-esophageal reflux disease without esophagitis; E11.9 Type 2 diabetes mellitus without complications; Z79.84 Long term (current) use of oral hypoglycemic drugs; Z79.899 Other long term (current) drug therapy
CPT/HCPCS: 36415; 70450; 70496; 70498; 70551; 71045; 80048; 80061; 80076; 82947; 83036; 85025; 85027; 85610; 93005; 93306; 96360; 96361; 96372; 97116; 97161; 97166; 97530; 99222; 99285; J1650; Q9957; Q9967

== ENCOUNTER → 2023-04-30 07:43 | Outpatient (BNV) | payer OTHER, SELFPAY | PROVIDERS: Admitting Provider Internal Medicine; Emergency Provider Emergency Medicine Emergency Medical Services; Visit Provider Internal Medicine Cardiovascular Disease | DX: I10 Essential (primary) hypertension (principal); G45.9 Transient cerebral ischemic attack, unspecified | CPT/HCPCS: 93010; 93306 ==

== ENCOUNTER → 2023-04-30 10:06 | Outpatient (BNV) | payer OTHER, SELFPAY | PROVIDERS: Admitting Provider Internal Medicine; Emergency Provider Emergency Medicine Emergency Medical Services; Visit Provider Psychiatry & Neurology Neurology | DX: G45.9 Transient cerebral ischemic attack, unspecified (principal); I10 Essential (primary) hypertension | CPT/HCPCS: 99222 ==

== ENCOUNTER → 2023-04-30 10:06 | Outpatient (BNV) | payer OTHER, SELFPAY | PROVIDERS: Admitting Provider Internal Medicine; Emergency Provider Emergency Medicine Emergency Medical Services; Visit Provider Internal Medicine | DX: G45.9 Transient cerebral ischemic attack, unspecified (principal); I10 Essential (primary) hypertension | CPT/HCPCS: 99223; 99238 ==

== ENCOUNTER 2023-05-05 18:46 | Observation (INO) | payer OTHER, SELFPAY ==
[2023-05-05 19:00] LABS: Glucose, Whole Blood 72 mg/dL (60-115)
[2023-05-05 19:01] VITALS: BP 142/87; BP 152/94; PULSE 68; PULSE 76; RESP 20; TEMP 36.3; O2SAT 98; O2SAT 99; BMI 31.0
--- NOTE | 2023-05-05 19:10 | ED.GENADULT ---
HPI - General Adult General Chief complaint: General Medical Stated complaint: Hypoglycemic, TIA on 04/30, oral glucose given Time Seen by Provider: 05/05/23 18:57 History of Present Illness HPI narrative: 57 y/o F patient; PMH HTN, T2DM, alcohol use disorder, GERD, hx acute transient aphasia 04/30/2023; presents from home with report of episode of aphasia. The patient states she was talking with her sister when she began to have difficulty with speech. On EMS arrival patient was noted to be hypoglycemic to 40. She was treated with 15g Dextrose and oral glucose. On chart review, patient was recently admitted from 04/30 - 05/01/2023 with similar presentation. She was found to have glucose 70 at that time in the ED, uncertain what glucose was on scene. MRI Brain did not show acute stroke and symptoms resolved without intervention. She was discharged to home with PCP follow up. Med review notes patient is on glipizide. Patient states she has been on this medication for the last 1 year. Denies any intentional or known unintentional overdose of this medication. Related Data Home Medications Medication Instructions Recorded Confirmed amlodipine 5 mg tablet 5 mg PO DAILY 04/30/23 04/30/23 clonidine HCl 0.1 mg tablet 0.1 mg PO BID 04/30/23 04/30/23 famotidine 20 mg tablet 20 mg PO BEDTIME PRN Heartburn 04/30/23 04/30/23 glipizide 5 mg tablet, extended 5 mg PO DAILY 04/30/23 04/30/23 release 24 hr ibuprofen 200 mg tablet 200 mg PO DAILY PRN Pain 04/30/23 04/30/23 losartan 100 mg tablet 100 mg PO DAILY 04/30/23 04/30/23 metoprolol tartrate 25 mg tablet 25 mg PO BID 04/30/23 04/30/23 pantoprazole 20 mg tablet,delayed 20 mg PO DAILY 04/30/23 04/30/23 release ropinirole 0.5 mg tablet 0.5 mg PO BEDTIME 04/30/23 04/30/23 Previous Rx's Medication Instructions Recorded aspirin 81 mg tablet,delayed 81 mg PO DAILY #90 tabs 05/01/23 release atorvastatin 80 mg tablet 80 mg PO BEDTIME #90 tabs 05/01/23 Allergies Allergy/AdvReac Type Severity Reaction Status Date / Time No Known Allergies Allergy Verified 05/05/23 19:01 Review of Systems Review of Systems: Yes all other systems are reviewed and are negative Neurologic: Denies Abnormal speech present and Denies Sensory deficit (Neuro) [facility] Past Medical History Attestation statement: The following information was validated with the patient. Medical History Acid reflux HTN (hypertension) Surgical History H/O section Family History Family History Mother Pancreatic cancer Social History Social History Alcohol intake: current Alcohol intake frequency: a few times a month Alcohol type: hard liquor Patient Tobacco Use Status: Never used Tobacco Tobacco use type: Cigarette Cigarettes Per Day: 5 Smoked in Last 30 Days: Yes Use of substances other than those prescribed or required for medical reasons: No Any prior treatment program specific to substance use: No Advance Directives: No Advance Directives Information Provided: No Patient : No service: No Current occupational status: employed Current occupation: [employer] Physical Exam ED Vital Signs: Vital Signs - 24 hr 05/05/23 19:01 Temperature 97.4 F Pulse Rate 68 Respiratory Rate 20 Blood Pressure 142/87 H Pulse Oximetry 99 Oxygen Delivery Method Room Air BMI result Body Mass Index 31.0 Patient is afebrile and hemodynamically stable. Const General: cooperative Orientation/consciousness: oriented to person, oriented to place and oriented to time [facility] Head: Yes atraumatic Eyes General: appearance normal, both eyes and all related structures Pupils: Equal, round and reactive pupils present EOM: No Nystagmus present Neck Neck: Yes normal visual inspection, Yes full ROM, Yes supple and No tender Chest Chest palpation & inspection: normal inspection of the chest and normal palpation of entire chest wall Resp Effort & Inspection: normal respiratory effort, able to speak in complete sentences and no respiratory distress Auscultation: clear to auscultation bilaterally Cardio Rate: regular rate Rhythm: regular rhythm Peripheral pulses: Peripheral pulses 2+ throughout GI Inspection: Yes normal to inspection and No distended Palpation (GI): Soft to palpation, not firm, nontender, no guarding and not rigid Auscultation: normal bowel sounds Neuro General: oriented to person, oriented to place and oriented to time Cranial nerves: Yes CN's II-XII intact bilaterally, Yes Equal, round and reactive pupils present, Yes Bilaterally intact EOM present, Yes Midline tongue present and No Nystagmus present Cognition (Neuro): normal cognition Speech: No Abnormal speech present Gait exam (Neuro): Normal gait present Motor exam (neuro): 5/5 motor strength present throughout Sensory Exam: No Sensory deficit (Neuro) Course Course Course Narrative: Patient is afebrile and hemodynamically stable. Concern for neurological abnormalities while hypoglycemic. Patient reports following PO intake with EMS her neurological aphasia resolved completely. Based on patient's recollection and review of prior emergency medicine/hospitalist records - concern patient may have been hypoglycemic on 04/30 when she presented with similar symptoms. At that time her initial ED glycose was noted to be in the low 70s. Will obtain basic screening labs and EKG. Reevaluation(s) Reevaluation #1: Laboratory studies notable for: Elevated ethanol level Hypokalemia - repleted Hypomagnesemia - repleted. Hypoglycemia - patient provided PO intake and D50 25mg IV. Order for PRN D50 25mg IV placed. Plan: Admit to hospitalist for recurrent hypoglycemia on sulfonylurea Condition: Stable Medical Decision Making Lab Data 05/05/23 19:42 05/05/23 19:42 Labs: Lab Results 05/05/23 05/05/23 Range/Units 18:54 19:42 WBC 14.3 H (4.8-10.8) X10*3/uL RBC 4.59 (4.20-5.50) X10*6/uL Hgb 15.0 (12.0-16.0) g/dl Hct 43.8 (37.0-47.0) % MCV 95.4 (80.0-98.0) fL MCH 32.7 (27.0-33.0) pg MCHC 34.2 (31.0-35.0) g/dl RDW 12.5 (11.0-16.0) % Plt Count 214 (160-400) X10*3/uL MPV 10.1 (9.4-12.3) fL Immature Gran % (Auto) 0.4 (0.0-0.4) % Neut % (Auto) 77.0 H (45-73) % Lymph % (Auto) 13.2 L (20-40) % [place] % (Auto) 7.8 (2-11) % Eos % (Auto) 1.3 (0-4) % Baso % (Auto) 0.3 (0-2) % Lymph # (Auto) 1.9 (1.2-4.9) X10*3/uL [place] # (Auto) 1.1 (0.1-1.2) X10*3/uL Eos # (Auto) 0.2 (0.0-0.4) X10*3/uL Baso # (Auto) 0.0 (0.0-0.2) X10*3/uL Abs Immat Gran (auto) 0.06 H (0.00-0.03) X10*3/uL Absolute Neuts (auto) 11.0 H (2.0-8.3) x10*3/uL Absolute Nucleated RBC 0.000 (0.0-0.012) X10*3/uL Nucleated RBC % (auto) 0.0 (0.0-0.2) /100WBC Sodium 141 (135-145) mmol/L Potassium 2.7 L* D (3.3-5.1) mmol/L Chloride 106 (96-108) mmol/L Carbon Dioxide 19 L (22-29) mmol/L Anion Gap 19 (12-20) BUN 27 H (9-16) mg/dL Creatinine 1.02 (0.5-1.4) mg/dL Estim Creat Clear Calc 54.7 Estimated GFR 55 POC Glucose 72 (60-115) mg/dL Random Glucose 52 L* (60-115) mg/dL Calcium 9.9 (8.4-10.2) mg/dL Magnesium 1.5 L (1.6-2.6) mg/dL Total Bilirubin 0.6 (0.0-1.0) mg/dL Direct Bilirubin 0.3 (0.0-0.5) mg/dL AST 33 H (5-31) U/L ALT 40 H (0-31) U/L Alkaline Phosphatase 77 (39-117) U/L Total Protein 7.8 (6.5-8.0) g/dL Albumin 4.6 (3.5-5.0) g/dL Ethyl Alcohol 187 mg/dL Influenza Type A (PCR) NEGATIVE (Negative) Influenza Type B (PCR) NEGATIVE (Negative) RSV RNA Qual (PCR) NEGATIVE (Negative) SARS-CoV-2 RNA (RT-PCR) NEGATIVE (Negative) Discharge Plan Discharge Clinical Impression: Alcohol abuse, Aphasia, Hypoglycemia, Hypokalemia, Hypomagnesemia Patient Disposition: Admitted As Inpatient
[2023-05-05 19:46] LABS: MANUAL DIFF FLAG NO
[2023-05-05 19:48] LABS: Basophils Percent Auto 0.3 % (0-2); Eosinophils Absolute Auto 0.2 X10*3/uL (0.0-0.4); Eosinophils Percent Auto 1.3 % (0-4); Hematocrit 43.8 % (37.0-47.0); Imm Gran Abs Auto 0.06 X10*3/uL (0.00-0.03); Imm Gran Pct Auto 0.4 % (0.0-0.4); Lymphocytes Absolute Auto 1.9 X10*3/uL (1.2-4.9); Lymphocytes Percent Auto 13.2 % (20-40); Mean Corpuscular HGB Conc 34.2 g/dl (31.0-35.0); Mean Corpuscular Hemoglobin 32.7 pg (27.0-33.0); Mean Corpuscular Volume 95.4 fL (80.0-98.0); Mean Platelet Volume 10.1 fL (9.4-12.3); Monocytes Absolute Auto 1.1 X10*3/uL (0.1-1.2); Monocytes Percent Auto 7.8 % (2-11); Platelet Count 214 X10*3/uL (160-400); Red Blood Count 4.59 X10*6/uL (4.20-5.50); Red Cell Distribution Width 12.5 % (11.0-16.0); White Blood Count 14.3 X10*3/uL (4.8-10.8)
--- NOTE | 2023-05-05 19:56 | ECG_ITS ---
Test Reason : GEN MED Blood Pressure : / mmHG Vent. Rate : 069 BPM Atrial Rate : 069 BPM P-R Int : 186 ms QRS Dur : 084 ms QT Int : 412 ms P-R-T Axes : 057 004 056 degrees QTc Int : 441 ms Normal sinus rhythm Inferior infarct (cited on or before 05-MAY-2023) Abnormal ECG When compared with ECG of 30-APR-2023 08:03, No significant change was found Referred By: Megan Bates Electronically Signed By:YOHANNES TSE MD
[2023-05-05 20:17] LABS: Alanine Aminotransferase 40 U/L (0-31); Albumin Level 4.6 g/dL (3.5-5.0); Alkaline Phosphatase 77 U/L (39-117); Anion Gap 19 (12-20); Aspartate Amino Transferase 33 U/L (5-31); Bilirubin Direct 0.3 mg/dL (0.0-0.5); Bilirubin Total 0.6 mg/dL (0.0-1.0); Blood Urea Nitrogen 27 mg/dL (9-16); Calcium 9.9 mg/dL (8.4-10.2); Carbon Dioxide 19 mmol/L (22-29); Chloride 106 mmol/L (96-108); Creatinine Clr Calc Pharmacy 54.7; Estimated Glomerular Filt Rate 55; Ethanol 187 mg/dL; Glucose Random 52 mg/dL (60-115); Potassium 2.7 mmol/L (3.3-5.1); Sodium 141 mmol/L (135-145); Total Protein 7.8 g/dL (6.5-8.0)
[2023-05-05 20:25] LABS: Influenza A PCR NEGATIVE (Negative); Influenza B PCR NEGATIVE (Negative); Resp Syncy Virus RNA Qual PCR NEGATIVE (Negative); SARS COV2 PCR INHOUSE NEGATIVE (Negative)
[2023-05-05 20:47] LABS: Magnesium 1.5 mg/dL (1.6-2.6)
--- NOTE | 2023-05-05 20:49 | PC.NURSE ---
Patient given chicken salad, pudding and gingerale. POC:58. Pt asymptomatic, but reporting she is hungry. PT given another chicken salad, pudding and cheese stick. Will recheck POC. Plan of care ongoing.
[2023-05-05] MEDS: Dextrose 50 % 25 GM/50 ML SYRINGE IVPUSH (21:06)
[2023-05-05] MEDS: Magnesium Sulfate/H2O 2 GM/50 ML PIGGYBACK IV (21:08)
[2023-05-05] MEDS: 0.9 % Sodium Chloride 1,000 ML 999 ML IV (21:08)
--- NOTE | 2023-05-05 21:12 | PC.NURSE ---
Pt ambulated to bathroom with assist without difficulty. Pt given dextrose, fluids and Magnesium. Provider at bedside. plan of care ongoing.
[2023-05-05] MEDS: Potassium Chloride/H20 10 MEQ/100 ML PIGGYBACK 100 MEQ IV (21:17)
[2023-05-05 21:28] LABS: Glucose, Whole Blood 189 mg/dL (60-115)
[2023-05-05 21:28] LABS: Glucose, Whole Blood 58 mg/dL (60-115)
--- NOTE | 2023-05-05 21:55 | P.HPHOSP_ITS ---
History of Present Illness Date of Service: 05/05/23 Attending physician on admission: Magdi Dominique Chief Complaint: Speech difficulty Orin Harden is a 57 years old woman with past medical history significant for type 2 diabetes mellitus on glipizide, essential hypertension and GERD presents to the emergency department complaining of sudden onset of speech difficulty associated with dizziness, diaphoresis and unsteadiness. She also reports nausea. Did not report vomiting, abdominal pain, diarrhea, severe headache or acute visual disturbances. No focal weakness reported. She did not report any cardiopulmonary or genitourinary symptoms. She drank today to showed or alcohol. She is a tobacco smoker. Denies illicit drug use. Patient was recently (April 30) hospitalized for similar symptoms that occur while she was having hypoglycemia. At that time she underwent head CT scan, head and neck CTA, brain MRI and echocardiogram with no significant findings. Family member at bedside and feels patient has not been eating well. In the ED. she was found to have stable vital signs. Her glucose was found to be the 40s, receiving D50 IV twice. She was also found to have hypokalemia (2.7) and hypomagnesemia (1.5). AST and ALT are slightly elevated. Total bilirubin and alk phos are normal. EtOH level 187. ED tx: D50 25 g IV X2, NS 1 L. Review of Systems 2 Review of Systems: All 12 systems were reviewed and normal except as noted in HPI. [facility] Medical History Acid reflux HTN (hypertension) Family History Mother Pancreatic cancer Surgical History H/O section Social History Alcohol intake: current Alcohol intake frequency: a few times a month Alcohol type: hard liquor Patient Tobacco Use Status: Never used Tobacco Tobacco use type: Cigarette Cigarettes Per Day: 5 Smoked in Last 30 Days: Yes Use of substances other than those prescribed or required for medical reasons: No Any prior treatment program specific to substance use: No Advance Directives: No Advance Directives Information Provided: No Patient : No service: No Current occupational status: employed Current occupation: [employer] Allergies Allergy/AdvReac Type Severity Reaction Status Date / Time No Known Allergies Allergy Verified 05/05/23 19:01 Active Medications: Current Medications Acetaminophen (Acetaminophen 325 Mg Tablet) 975 mg PO Q6H PRN PRN Reason: Pain, Mild (Pain Scale 1-3) Amlodipine Besylate (Amlodipine Besylate 5 Mg Tablet) 5 mg PO ONCE ONE; Protocol Stop: 05/05/23 21:45 Atorvastatin Calcium (Atorvastatin Calcium 80 Mg Tablet) 80 mg PO ONCE ONE Stop: 05/05/23 21:45 Clonidine HCl (Clonidine Hcl 0.1 Mg Tablet) 0.1 mg PO ONCE ONE; Protocol Stop: 05/05/23 21:45 Dextrose (Dextrose 50 % 25 Gm/50 Ml Syringe) 25 gm IVPUSH Q15M PRN PRN Reason: per Hypoglycemia Standing Ord. Famotidine (Famotidine 20 Mg Tablet) 20 mg PO ONCE ONE Stop: 05/05/23 21:45 Magnesium Sulfate (Magnesium Sulfate/H2o) 2 gm in 50 mls @ 25 mls/hr IV ONCE ONE Stop: 05/05/23 22:50 Last Admin: 05/05/23 21:08 Dose: 25 mls/hr Potassium Chloride (Potassium Chloride/H20) 10 meq in 100 mls @ 100 mls/hr IV Q1H [place] Stop: 05/06/23 00:59 Last Admin: 05/05/23 21:17 Dose: 100 mls/hr Dextrose/Sodium Chloride (D5ns) 1,000 mls @ 42 mls/hr IVCONT .[id number] [facility] Losartan Potassium (Losartan Potassium 50 Mg Tablet) 100 mg PO ONCE ONE; Protocol Stop: 05/05/23 21:45 Metoprolol Tartrate (Metoprolol Tartrate 25 Mg Tablet) 25 mg PO ONCE ONE; Protocol Stop: 05/05/23 21:48 Ropinirole HCl (Ropinirole Hcl 0.5 Mg Tablet) 0.5 mg PO ONCE PRN PRN Reason: Restlessness Sodium Chloride (0.9 % Sodium Chloride Flush 3 Ml Syringe) 3 ml IVFLUSH QSHIFT [facility] Home Medications Medication Instructions Recorded Confirmed Last Taken Type amlodipine 5 mg tablet 5 mg PO DAILY 04/30/23 04/30/23 04/29/23 History clonidine HCl 0.1 mg tablet 0.1 mg PO BID 04/30/23 04/30/23 04/29/23 History famotidine 20 mg tablet 20 mg PO BEDTIME PRN Heartburn 04/30/23 04/30/23 04/29/23 History glipizide 5 mg tablet, extended 5 mg PO DAILY 04/30/23 04/30/23 04/29/23 History release 24 hr ibuprofen 200 mg tablet 200 mg PO DAILY PRN Pain 04/30/23 04/30/23 04/29/23 History losartan 100 mg tablet 100 mg PO DAILY 04/30/23 04/30/23 04/29/23 History metoprolol tartrate 25 mg tablet 25 mg PO BID 04/30/23 04/30/23 04/29/23 History pantoprazole 20 mg tablet,delayed 20 mg PO DAILY 04/30/23 04/30/23 04/29/23 History release ropinirole 0.5 mg tablet 0.5 mg PO BEDTIME 04/30/23 04/30/23 04/29/23 History Physical Exam 2 Vital Signs and Narrative: Vital Signs: Last Vital Signs Temp 97.4 F 05/05/23 19:01 Pulse 68 05/05/23 19:01 Resp 20 05/05/23 19:01 BP 142/87 H 05/05/23 19:01 Pulse Ox 99 05/05/23 19:01 O2 Del Method Room Air 05/05/23 19:01 BMI result Body Mass Index 31.0 Constitutional - Awake and Alert, No apparent distress. Cooperative. Pleasant. HEENT - PERRLA, EOMI Heart - S1S2, RRR. Lungs- Normal lung expansion, Normal respiratory effort, No respiratory distress, CTA bilaterally Abdoment- NT / ND. - No CVA tenderness Extremities - no calf tenderness bilaterally, no swelling Musculoskeletal - Normal inspection, normal ROM Skin - Warm/Dry Neurological - Alert & oriented x3, CN II-XII in tact, 5/5 strength BUE and BLE. (+) nystagmus Psychological - Appropriate affect Results Labs 05/05/23 19:42 05/05/23 19:42 Labs: Laboratory Results - last 24 hr 05/05/23 05/05/23 05/05/23 18:54 19:42 20:35 MCV 95.4 MCH 32.7 MCHC 34.2 RDW 12.5 Plt Count 214 MPV 10.1 Immature Gran % (Auto) 0.4 Neut % (Auto) 77.0 H Lymph % (Auto) 13.2 L [place] % (Auto) 7.8 Eos % (Auto) 1.3 Baso % (Auto) 0.3 Lymph # (Auto) 1.9 [place] # (Auto) 1.1 Eos # (Auto) 0.2 Baso # (Auto) 0.0 Abs Immat Gran (auto) 0.06 H Absolute Neuts (auto) 11.0 H Absolute Nucleated RBC 0.000 Nucleated RBC % (auto) 0.0 Anion Gap 19 Estim Creat Clear Calc 54.7 Estimated GFR 55 POC Glucose 72 58 L* Random Glucose 52 L* Calcium 9.9 Magnesium 1.5 L Total Bilirubin 0.6 Direct Bilirubin 0.3 AST 33 H ALT 40 H Alkaline Phosphatase 77 Total Protein 7.8 Albumin 4.6 Ethyl Alcohol 187 Influenza Type A (PCR) NEGATIVE Influenza Type B (PCR) NEGATIVE RSV RNA Qual (PCR) NEGATIVE SARS-CoV-2 RNA (RT-PCR) NEGATIVE 05/05/23 21:24 MCV MCH MCHC RDW Plt Count MPV Immature Gran % (Auto) Neut % (Auto) Lymph % (Auto) [place] % (Auto) Eos % (Auto) Baso % (Auto) Lymph # (Auto) [place] # (Auto) Eos # (Auto) Baso # (Auto) Abs Immat Gran (auto) Absolute Neuts (auto) Absolute Nucleated RBC Nucleated RBC % (auto) Anion Gap Estim Creat Clear Calc Estimated GFR POC Glucose 189 H Random Glucose Calcium Magnesium Total Bilirubin Direct Bilirubin AST ALT Alkaline Phosphatase Total Protein Albumin Ethyl Alcohol Influenza Type A (PCR) Influenza Type B (PCR) RSV RNA Qual (PCR) SARS-CoV-2 RNA (RT-PCR) Assessment and Plan (1) Hypomagnesemia: Status: Acute (2) Hypokalemia: Status: Acute (3) Hypoglycemia: Status: Acute (4) HTN (hypertension): Qualifiers: Hypertension type: primary hypertension Qualified Code(s): I10 - Essential (primary) hypertension Status: Acute (5) Acid reflux: Qualifiers: Esophagitis presence: without esophagitis Qualified Code(s): K21.9 - Gastro-esophageal reflux disease without esophagitis Status: Acute (6) Alcohol abuse: Status: Acute Plan Orin Harden is a 57 years old woman presents with: * Hypoglycemia, likely secondary to glipizide + recent alcohol use + poor PO intake of food (low carb diet). Acute symptoms resolved after administration of D50. Keep in observation. Telemetry. Start IV fluids with D5. Continue to monitor glucose. Recommended to discontinue glipizide for now. * Hypokalemia and hypomagnesemia, likely secondary to recent consumption of alcohol. Replete as needed. Telemetry. Continue to monitor potassium and magnesium level. * GERD. Continue famotidine. * Type 2 diabetes mellitus. Continue to monitor blood glucose. Avoid insulin and/or hypoglycemic agents as pt has been having refractory hypoglycemia. * Essential hypertension. Continue amlodipine, clonidine, metoprolol and losartan. * Recent diagnosis of TIA. Continue and aspirin. * Alcohol use. Patient advice to abstain of alcohol consumption. CIWA protocol. * Elevated transaminases, likely due to alcohol use. * Restless leg syndrome. Requip as needed. DVT prophylaxis: SCDs. Code status: Full. Quality Stroke Does the patient have a stroke diagnosis?: No VTE Prior VTE?: No VTE Risk Level:: Medical - low VTE Device Contraindication: N/A - Device Ordered VTE Drug Contraindication: Treatment Not Indicated
[2023-05-05] MEDS: Dextrose 5 % and 0.9 % NaCl 1,000 ML 42 ML IVCONT (22:22)
[2023-05-05] MEDS: Atorvastatin Calcium 80 MG TABLET PO (22:44)
[2023-05-05] MEDS: Metoprolol Tartrate 25 MG TABLET PO (22:44)
[2023-05-05] MEDS: Losartan Potassium 50 MG TABLET 100 MG PO (22:44)
[2023-05-05] MEDS: Famotidine 20 MG TABLET PO (22:44)
[2023-05-05] MEDS: cloNIDine HCL 0.1 MG TABLET PO (22:44)
[2023-05-05] MEDS: amLODIPine Besylate 5 MG TABLET PO (22:44)
[2023-05-05] MEDS: rOPINIRole HCL 0.5 MG TABLET PO (22:58)
[2023-05-05] MEDS: Thiamine HCL 100 MG in 0.9 % Sodium Chloride 100 ML 202 MG IV (23:00)
[2023-05-06] MEDS: Potassium Chloride/H20 10 MEQ/100 ML PIGGYBACK 100 MEQ IV ×3 (00:34→03:34)
[2023-05-06 00:51] LABS: Glucose, Whole Blood 77 mg/dL (60-115)
[2023-05-06 04:27] VITALS: BP 109/72; PULSE 56; RESP 18; TEMP 36.8; O2SAT 98
[2023-05-06 04:34] LABS: Glucose, Whole Blood 95 mg/dL (60-115)
[2023-05-06 05:29] VITALS: BP 113/74; PULSE 60; RESP 17; TEMP 36.4; O2SAT 96
[2023-05-06 07:21] LABS: Glucose, Whole Blood 111 mg/dL (60-115)
--- NOTE | 2023-05-06 07:33 | PHA.MEDREC ---
Addendum entered by Eva David, [facility] 05/06/23 08:55: dr. moore notified med rec is complete Original Note: Pharmacy Consult ? Medication Reconciliation Pharmacy has completed the medication reconciliation. Spoke with patient in the ED who knew all medications
[2023-05-06 08:57] LABS: MANUAL DIFF FLAG NO
[2023-05-06 09:01] LABS: Basophils Absolute Auto 0.1 X10*3/uL (0.0-0.2); Basophils Percent Auto 0.7 % (0-2); Eosinophils Absolute Auto 0.2 X10*3/uL (0.0-0.4); Eosinophils Percent Auto 2.2 % (0-4); Hematocrit 42.4 % (37.0-47.0); Hemoglobin 14.5 g/dl (12.0-16.0); Imm Gran Abs Auto 0.03 X10*3/uL (0.00-0.03); Imm Gran Pct Auto 0.4 % (0.0-0.4); Lymphocytes Absolute Auto 1.8 X10*3/uL (1.2-4.9); Lymphocytes Percent Auto 23.9 % (20-40); Mean Corpuscular HGB Conc 34.2 g/dl (31.0-35.0); Mean Corpuscular Hemoglobin 32.9 pg (27.0-33.0); Mean Corpuscular Volume 96.1 fL (80.0-98.0); Mean Platelet Volume 11.1 fL (9.4-12.3); Monocytes Absolute Auto 0.9 X10*3/uL (0.1-1.2); Monocytes Percent Auto 11.5 % (2-11); Neutrophils Absolute Auto 4.6 x10*3/uL (2.0-8.3); Neutrophils Percent Auto 61.3 % (45-73); Platelet Count 199 X10*3/uL (160-400); Red Blood Count 4.41 X10*6/uL (4.20-5.50); Red Cell Distribution Width 12.5 % (11.0-16.0); White Blood Count 7.4 X10*3/uL (4.8-10.8)
--- NOTE | 2023-05-06 09:09 | MHC.CM.PN ---
CM met with Patient in the ED, at bedside and addressed ABERNATHY with her, providing Patient with the original and a copy will be placed on the chart. 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 Patient's Sister/Pia is the HCP and the PCP is from [facility] in [place].
[2023-05-06 09:15] LABS: Anion Gap 12 (12-20); Blood Urea Nitrogen 21 mg/dL (9-16); Calcium 9.5 mg/dL (8.4-10.2); Carbon Dioxide 25 mmol/L (22-29); Chloride 108 mmol/L (96-108); Creatinine Clr Calc Pharmacy 63.5; Estimated Glomerular Filt Rate > 60; Glucose Random 116 mg/dL (60-115); Magnesium 1.7 mg/dL (1.6-2.6); Potassium 4.1 mmol/L (3.3-5.1); Sodium 141 mmol/L (135-145)
[2023-05-06 09:23] LABS: Estimated Average Glucose 88 mg/dL; Hemoglobin A1c % 4.7 % (<6.0)
[2023-05-06] MEDS: Aspirin Enteric Coated 81 MG TABLET.DR PO (09:54)
--- NOTE | 2023-05-06 09:56 | PC.NURSE ---
Patient declined bP meds stating she took them last night, pharmacy notified to re schedule
[2023-05-06 10:47] LABS: Glucose, Whole Blood 203 mg/dL (60-115)
--- NOTE | 2023-05-06 10:50 | PC.NURSE ---
Provider notified of bs, stating to stop maintenance D5 fluids
[2023-05-06 14:39] LABS: Glucose, Whole Blood 148 mg/dL (60-115)
--- NOTE | 2023-05-06 15:06 | P.PNIM_ITS ---
Subjective Subjective Date of Service: 05/06/23 Interval History: hypoglycemia Review of Systems seems improving speech normal no weakness or numbness Physical Exam 2 Vital Signs: Vital Signs: Last Vital Signs Temp 97.6 F 05/06/23 05:29 Pulse 60 05/06/23 05:29 Resp 17 05/06/23 05:29 BP 113/74 05/06/23 05:29 Pulse Ox 96 05/06/23 05:29 O2 Del Method Room Air 05/06/23 05:29 BMI result Body Mass Index 31.0 Appearance: Alert.? Oriented X3.? cvs: [id number], [id number] . res: clear to auscultation ,no rhonchii or wheezing abd: no rebound or guarding ,nt, bs present. ext pulses present , no cyanosis . neuro: axo3 , nonfocal. Objective Data Active Medications Acetaminophen (Acetaminophen 325 Mg Tablet) 975 mg PO Q6H PRN PRN Reason: Pain, Mild (Pain Scale 1-3) Amlodipine Besylate (Amlodipine Besylate 5 Mg Tablet) 5 mg PO DAILY@1999 [facility]; Protocol Aspirin (Aspirin Enteric Coated 81 Mg Tablet.) 81 mg PO DAILY [facility] Last Admin: 05/06/23 09:54 Dose: 81 mg Documented By: ALAN Atorvastatin Calcium (Atorvastatin Calcium 80 Mg Tablet) 80 mg PO BEDTIME [facility] Clonidine HCl (Clonidine Hcl 0.1 Mg Tablet) 0.1 mg PO BID [facility]; Protocol Last Admin: 05/06/23 09:54 Dose: Not Given Documented By: ALAN Non-Admin Reason: Patient Refused Dextrose (Dextrose 50 % 25 Gm/50 Ml Syringe) 25 gm IVPUSH Q15M PRN PRN Reason: per Hypoglycemia Standing Ord. Famotidine (Famotidine 20 Mg Tablet) 20 mg PO BEDTIME [facility] Dextrose/Sodium Chloride (D5ns) 1,000 mls @ 80 mls/hr IVCONT .[id number] [facility] Last Admin: 05/06/23 10:52 Dose: Not Given Documented By: ALAN Non-Admin Reason: Physician Held Med Losartan Potassium (Losartan Potassium 50 Mg Tablet) 100 mg PO DAILY@1999 [facility]; Protocol Metoprolol Tartrate (Metoprolol Tartrate 25 Mg Tablet) 25 mg PO BID [facility]; Protocol Last Admin: 05/06/23 09:53 Dose: Not Given Documented By: ALAN Non-Admin Reason: Patient Refused Omeprazole (Omeprazole 20 Mg Capsule.) 20 mg PO DAILY@0630 [facility] Ropinirole HCl (Ropinirole Hcl 0.5 Mg Tablet) 0.5 mg PO ONCE PRN PRN Reason: Restlessness Last Admin: 05/05/23 22:58 Dose: 0.5 mg Documented By: SHREYA Ropinirole HCl (Ropinirole Hcl 0.5 Mg Tablet) 0.5 mg PO BEDTIME [facility] Sodium Chloride (0.9 % Sodium Chloride Flush 3 Ml Syringe) 3 ml IVFLUSH QSHIFT [facility] Last Admin: 05/06/23 07:43 Dose: Not Given Documented By: ALAN Non-Admin Reason: IV Running Labs 05/06/23 08:06 05/06/23 08:06 Labs: Laboratory Results - last 24 hr 05/05/23 05/05/23 05/05/23 18:54 19:42 20:35 MCV 95.4 MCH 32.7 MCHC 34.2 RDW 12.5 Plt Count 214 MPV 10.1 Immature Gran % (Auto) 0.4 Neut % (Auto) 77.0 H Lymph % (Auto) 13.2 L Anderson % (Auto) 7.8 Eos % (Auto) 1.3 Baso % (Auto) 0.3 Lymph # (Auto) 1.9 Anderson # (Auto) 1.1 Eos # (Auto) 0.2 Baso # (Auto) 0.0 Abs Immat Gran (auto) 0.06 H Absolute Neuts (auto) 11.0 H Absolute Nucleated RBC 0.000 Nucleated RBC % (auto) 0.0 Anion Gap 19 Estim Creat Clear Calc 54.7 Estimated GFR 55 POC Glucose 72 58 L* Random Glucose 52 L* Estimat Average Glucose Hemoglobin A1c % Calcium 9.9 Magnesium 1.5 L Total Bilirubin 0.6 Direct Bilirubin 0.3 AST 33 H ALT 40 H Alkaline Phosphatase 77 Total Protein 7.8 Albumin 4.6 Ethyl Alcohol 187 Influenza Type A (PCR) NEGATIVE Influenza Type B (PCR) NEGATIVE RSV RNA Qual (PCR) NEGATIVE SARS-CoV-2 RNA (RT-PCR) NEGATIVE 05/05/23 05/06/23 05/06/23 21:24 00:46 04:26 MCV MCH MCHC RDW Plt Count MPV Immature Gran % (Auto) Neut % (Auto) Lymph % (Auto) Anderson % (Auto) Eos % (Auto) Baso % (Auto) Lymph # (Auto) Anderson # (Auto) Eos # (Auto) Baso # (Auto) Abs Immat Gran (auto) Absolute Neuts (auto) Absolute Nucleated RBC Nucleated RBC % (auto) Anion Gap Estim Creat Clear Calc Estimated GFR POC Glucose 189 H 77 95 Random Glucose Estimat Average Glucose Hemoglobin A1c % Calcium Magnesium Total Bilirubin Direct Bilirubin AST ALT Alkaline Phosphatase Total Protein Albumin Ethyl Alcohol Influenza Type A (PCR) Influenza Type B (PCR) RSV RNA Qual (PCR) SARS-CoV-2 RNA (RT-PCR) 05/06/23 05/06/23 05/06/23 07:17 08:06 10:43 MCV 96.1 MCH 32.9 MCHC 34.2 RDW 12.5 Plt Count 199 MPV 11.1 Immature Gran % (Auto) 0.4 Neut % (Auto) 61.3 Lymph % (Auto) 23.9 Anderson % (Auto) 11.5 H Eos % (Auto) 2.2 Baso % (Auto) 0.7 Lymph # (Auto) 1.8 Anderson # (Auto) 0.9 Eos # (Auto) 0.2 Baso # (Auto) 0.1 Abs Immat Gran (auto) 0.03 Absolute Neuts (auto) 4.6 Absolute Nucleated RBC 0.000 Nucleated RBC % (auto) 0.0 Anion Gap 12 Estim Creat Clear Calc 63.5 Estimated GFR > 60 POC Glucose 111 203 H Random Glucose 116 H Estimat Average Glucose 88 Hemoglobin A1c % 4.7 Calcium 9.5 Magnesium 1.7 Total Bilirubin Direct Bilirubin AST ALT Alkaline Phosphatase Total Protein Albumin Ethyl Alcohol Influenza Type A (PCR) Influenza Type B (PCR) RSV RNA Qual (PCR) SARS-CoV-2 RNA (RT-PCR) 05/06/23 14:35 MCV MCH MCHC RDW Plt Count MPV Immature Gran % (Auto) Neut % (Auto) Lymph % (Auto) Anderson % (Auto) Eos % (Auto) Baso % (Auto) Lymph # (Auto) Anderson # (Auto) Eos # (Auto) Baso # (Auto) Abs Immat Gran (auto) Absolute Neuts (auto) Absolute Nucleated RBC Nucleated RBC % (auto) Anion Gap Estim Creat Clear Calc Estimated GFR POC Glucose 148 H Random Glucose Estimat Average Glucose Hemoglobin A1c % Calcium Magnesium Total Bilirubin Direct Bilirubin AST ALT Alkaline Phosphatase Total Protein Albumin Ethyl Alcohol Influenza Type A (PCR) Influenza Type B (PCR) RSV RNA Qual (PCR) SARS-CoV-2 RNA (RT-PCR) Assessment and Plan (1) Hypomagnesemia: Status: Acute (2) Hypokalemia: Status: Acute (3) Hypoglycemia: Status: Acute Plan 57 years old woman presents with: Hypoglycemia, likely secondary to glipizide + recent alcohol use + poor PO intake of food (low carb diet). stop glipizide moniiter fs ,hold fluids fs are now in 140-200 range . Hypokalemia and hypomagnesemia, likely secondary to recent consumption of alcohol. repleted and resolved. GERD. Continue famotidine. Type 2 diabetes mellitus. Continue to monitor blood glucose. Avoid insulin and/or hypoglycemic agents as pt has been having refractory hypoglycemia. Essential hypertension. Continue amlodipine, clonidine, metoprolol and losartan. Recent diagnosis of TIA. Continue and aspirin. Alcohol use. Patient advice to abstain of alcohol consumption. CIWA protocol. Elevated transaminases, likely due to alcohol use. Restless leg syndrome. Requip as needed. DVT prophylaxis: SCDs. ongoing hospitlisation need for 24-48 hrs : Hypoglycemia, likely secondary to glipizide- moniter fs and closely monitering electrolytes . Quality Stroke Does the patient have a stroke diagnosis?: No VTE Prior VTE?: No VTE Risk Level:: Medical - low VTE Device Contraindication: N/A - Device Ordered VTE Drug Contraindication: Treatment Not Indicated
[2023-05-06] MEDS: 0.9 % Sodium Chloride Flush 3 ML SYRINGE IVFLUSH ×2 (15:45→22:01)
[2023-05-06 17:00] VITALS: BP 121/71; PULSE 76; RESP 16; TEMP 36.4; O2SAT 97
[2023-05-06 17:10] LABS: Glucose, Whole Blood 185 mg/dL (60-115)
[2023-05-06 19:59] VITALS: BP 116/78; PULSE 71; RESP 18; TEMP 36.7; O2SAT 97
[2023-05-06 20:17] LABS: Glucose, Whole Blood 156 mg/dL (60-115)
[2023-05-06 20:27] VITALS: BMI 30.9
[2023-05-06 20:28] VITALS: BMI 30.9
[2023-05-06] MEDS: Metoprolol Tartrate 25 MG TABLET PO (21:54)
[2023-05-06] MEDS: cloNIDine HCL 0.1 MG TABLET PO (21:54)
[2023-05-06] MEDS: Losartan Potassium 50 MG TABLET 100 MG PO (21:55)
[2023-05-06] MEDS: Atorvastatin Calcium 80 MG TABLET PO (21:55)
[2023-05-06] MEDS: rOPINIRole HCL 0.5 MG TABLET PO (21:55)
[2023-05-06] MEDS: amLODIPine Besylate 5 MG TABLET PO (21:55)
[2023-05-06] MEDS: Famotidine 20 MG TABLET PO (21:55)
[2023-05-07] VITALS: BP 114/83; PULSE 68; RESP 18; TEMP 36.1; O2SAT 96
[2023-05-07 00:13] LABS: Glucose, Whole Blood 179 mg/dL (60-115)
[2023-05-07 03:24] VITALS: BP 111/71; PULSE 61; RESP 18; TEMP 36.2; O2SAT 97
[2023-05-07 03:32] LABS: Glucose, Whole Blood 142 mg/dL (60-115)
[2023-05-07 05:32] LABS: Glucose, Whole Blood 134 mg/dL (60-115)
[2023-05-07] MEDS: Omeprazole 20 MG CAPSULE.DR PO (05:32)
[2023-05-07 07:28] VITALS: BP 112/65; PULSE 59; RESP 18; TEMP 36.1; O2SAT 96
[2023-05-07 07:42] LABS: Glucose, Whole Blood 135 mg/dL (60-115)
[2023-05-07] MEDS: 0.9 % Sodium Chloride Flush 3 ML SYRINGE IVFLUSH (08:01)
[2023-05-07] MEDS: Aspirin Enteric Coated 81 MG TABLET.DR PO (08:10)
--- NOTE | 2023-05-07 11:22 | PM.DS ---
DS: Providers Provider Date of Service: 05/07/23 Date of admission: 05/05/23 21:38 Date of discharge: 05/07/23 Primary care physician: Eliud Zelaya III, MD Attending physician on discharge: Lynn Charles Discharging clinician: Lynn Charles DS: Diagnosis Discharge Diagnosis (1) Hypomagnesemia: Status: Acute (2) Hypokalemia: Status: Acute (3) Hypoglycemia: Status: Acute DS: Summary Hospital Course Hospital Course: 57 years old woman with past medical history significant for type 2 diabetes mellitus on glipizide, essential hypertension and GERD presents to the emergency department complaining of sudden onset of speech difficulty associated with dizziness, diaphoresis and unsteadiness. She also reports nausea. Did not report vomiting, abdominal pain, diarrhea, severe headache or acute visual disturbances. No focal weakness reported. She did not report any cardiopulmonary or genitourinary symptoms. She drank today to showed or alcohol. She is a tobacco smoker. Denies illicit drug use. Patient was recently (April 30) hospitalized for similar symptoms that occur while she was having hypoglycemia. At that time she underwent head CT scan, head and neck CTA, brain MRI and echocardiogram with no significant findings. Family member at bedside and feels patient has not been eating well. In the ED. she was found to have stable vital signs. Her glucose was found to be the 40s, receiving D50 IV twice. She was also found to have hypokalemia (2.7) and hypomagnesemia (1.5). AST and ALT are slightly elevated. Total bilirubin and alk phos are normal. EtOH level 187. ED tx: D50 25 g IV X2, NS 1 L. Hospital course: Patient was admitted to the hospital-with possible hypoglycemic episode which responded well to dextrose-patient's symptoms seems to be resolved, patient's IV fluids stopped and patient is maintaining sugars in 140s range, glipizide stopped, hemoglobin A1c is 4.7. Patient was not checking her fingersticks at home, diabetic education was given in detail. Patient was strongly advised to hold off on glipizide, monitor fingersticks at home, if fingersticks are consistently above 200 then patient is to have repeat hemoglobin A1c, may consider outpatient diabetic medication and further management as per PCP. plan: Stop glipizide. Diabetic education was given in detail. Patient was strongly advised to hold off on glipizide, monitor fingersticks at home, if fingersticks are consistently above 200 then patient is to have repeat hemoglobin A1c, may consider outpatient diabetic medication and further management as per PCP. moniter bp also outpatient-currently blood pressure is between 110 and 120 range and patient is tolerating her home medications so will continue current regimen. htn regimen can be adjusted out patiently as per PCP if needed for blood pressure. Above management discussed with the patient in detail length she understand and in agreement with the above plan. Time Attestation Discharge coordination time: Greater than 30 minutes Quality: Safe Use of Opioids Does Pt have an Active Cancer Diagnosis on the Problem List?: No Quality: Stroke Does the patient have a stroke diagnosis?: No Physical Exam Vital Signs: Vital Signs: Last Vital Signs Temp 96.9 F 05/07/23 07:28 Pulse 59 05/07/23 07:28 Resp 18 05/07/23 07:28 BP 112/65 05/07/23 07:28 Pulse Ox 96 05/07/23 07:28 O2 Del Method Room Air 05/07/23 07:28 BMI result Body Mass Index 30.9 Appearance: Alert.? Oriented X3.? not in distress.? cvs: rrr, [id number] . res: clear to auscultation ,no rhonchii or wheezing abd: no rebound or guarding ,nt, bs present. ext pulses present , no cyanosis. neuro: axo3 , nonfocal. DS: Data Data Completed and Pending Labs on day of discharge: Laboratory Results - last 24 hr 05/06/23 05/06/23 05/06/23 14:35 17:05 20:08 POC Glucose 148 H 185 H 156 H 05/07/23 05/07/23 05/07/23 00:07 03:26 05:16 POC Glucose 179 H 142 H 134 H 05/07/23 07:28 POC Glucose 135 H Discharge Plan Discharge Anticipated Discharge Date/Time: 05/07/23 10:56 Patient Disposition: Home, Self-Care Discharge Diagnosis: hypoglycemia Referrals: Eliud Zelaya III, MD [Primary Care Provider] - 1 Week Discharge Medications: New (DME) FreeStyle Lite Strips Strip Qty: 100 0RF Rx Instructions: Test four times a day or as directed. (DME) blood-glucose meter [FreeStyle Lite Meter] Kit Qty: 1 0RF Rx Instructions: As Directed alcohol swabs Pads, Medicated 1 pad TOPICAL QIDACHS Qty: 100 0RF Rx Instructions: Use four times a day or as directed. (DME) lancets [FreeStyle Lancets] 28 gauge misc Qty: 100 0RF Rx Instructions: Test four times a day or as directed. Continued clonidine HCl 0.1 mg tablet 0.1 mg PO BID famotidine 20 mg tablet 20 mg PO BEDTIME losartan 100 mg tablet 100 mg PO DAILY metoprolol tartrate 25 mg tablet 25 mg PO BID pantoprazole 20 mg tablet,delayed release (DR/EC) 20 mg PO DAILY@0630 ropinirole 0.5 mg tablet 0.5 mg PO BEDTIME ibuprofen 200 mg Tablet 200 mg PO Q4-6H PRN (Reason: Pain (Scale Score 1-3)) atorvastatin 80 mg Tablet 80 mg PO BEDTIME Qty: 90 0RF aspirin 81 mg Tablet,Delayed Release (Dr/Ec) 81 mg PO DAILY Qty: 90 0RF omega [id number] oil [Fish Oil] 1,000 mg (120 mg-180 mg) Capsule 1 cap PO DAILY amlodipine 5 mg tablet 5 mg PO DAILY Qty: 30 0RF Discontinued glipizide 5 mg tablet extended release 24hr 5 mg PO DAILY Discharge Orders: Discharge Order (Routine); Ordered 05/07/23 Ordered By: Lynn Charles Diet: Advance to usual diet Activity on Discharge: As tolerated Stand Alone Forms: Patient Portal Discharge page Care Plan Goals: Patient was admitted to the hospital-with possible hypoglycemic episode which responded well to dextrose-patient's symptoms seems to be resolved, patient's IV fluids stopped and patient is maintaining sugars in 140s range, glipizide stopped, hemoglobin A1c is 4.7. Patient was not checking her fingersticks at home, diabetic education was given in detail. Patient was strongly advised to hold off on glipizide, monitor fingersticks at home, if fingersticks are consistently above 200 then patient is to have repeat hemoglobin A1c, may consider outpatient diabetic medication and further management as per PCP. Above management discussed with the patient in detail length she understand and in agreement with the above plan. Health Concerns: As above. Plan of Treatment: Stop glipizide. Diabetic education was given in detail. Patient was strongly advised to hold off on glipizide, monitor fingersticks at home, if fingersticks are consistently above 200 then patient is to have repeat hemoglobin A1c, may consider outpatient diabetic medication and further management as per PCP. Assessment: As above.
[2023-05-07 11:29] VITALS: BP 121/77; PULSE 62; RESP 18; TEMP 36.2; O2SAT 97
[2023-05-07 11:45] LABS: Glucose, Whole Blood 161 mg/dL (60-115)
--- NOTE | 2023-05-07 11:48 | MHC.CM.PN ---
Pt is medically cleared for D/C home self-care, pt states she is going to walk home as it is a very short distance from the hospital.
== END 2023-05-07 13:30 | disposition home or self-care (01) ==
LOC: HO.ED 21:24 → HO.EDOVER 21:45 → HO.IMC 05-06 16:40
PROVIDERS: Admitting Provider Internal Medicine; Emergency Provider Emergency Medicine; PCP Internal Medicine; Visit Provider Internal Medicine
DX: E11.649 Type 2 diabetes mellitus with hypoglycemia without coma (principal); E87.6 Hypokalemia; E83.42 Hypomagnesemia; F10.10 Alcohol abuse, uncomplicated; R94.31 Abnormal electrocardiogram [ECG] [EKG]; I10 Essential (primary) hypertension; E11.9 Type 2 diabetes mellitus without complications; K21.9 Gastro-esophageal reflux disease without esophagitis; R47.89 Other speech disturbances; Z11.52 Encounter for screening for COVID-19; Z20.828 Contact with and (suspected) exposure to other viral communicable diseases
CPT/HCPCS: 0241U; 36415; 80048; 80076; 80307; 82947; 83036; 83735; 85025; 93005; 96361; 96365; 96366; 96368; 99222; 99285; J3411; J3475; J3480

== ENCOUNTER → 2023-05-05 19:56 | Outpatient (BNV) | payer OTHER, SELFPAY | PROVIDERS: Admitting Provider Internal Medicine; Emergency Provider Emergency Medicine; PCP Internal Medicine; Visit Provider Internal Medicine Cardiovascular Disease | DX: R94.31 Abnormal electrocardiogram [ECG] [EKG] (principal); I10 Essential (primary) hypertension | CPT/HCPCS: 93010 ==

== ENCOUNTER → 2023-05-05 21:38 | Outpatient (BNV) | payer OTHER, SELFPAY | PROVIDERS: Admitting Provider Internal Medicine; Emergency Provider Emergency Medicine; PCP Internal Medicine; Visit Provider Internal Medicine | DX: E11.649 Type 2 diabetes mellitus with hypoglycemia without coma (principal); E83.42 Hypomagnesemia; E87.6 Hypokalemia; F10.10 Alcohol abuse, uncomplicated; I10 Essential (primary) hypertension; K21.9 Gastro-esophageal reflux disease without esophagitis | CPT/HCPCS: 99223; 99231; 99238 ==